=== PATIENT | male | born 1950 | race Caucasian/White ===

== ENCOUNTER 2017-04-20 12:26 | Inpatient (IN) | payer OTHER, MEDICARE ==
[~2017-04-20] VITALS: Ht 172.7 cm; Wt 97.5 kg
[~2017-04-20 12:26] MED LIST: CHOL1CAP6 PO; LISI10TA PO; MEVA40TA PO; TERA2CAP3 PO; TEST200I13 IM; VIAG100T PO
--- NOTE | 2017-04-20 13:13 | PD ---
HPI Chief Complaint: chest pain Time Seen by Provider: 13:13 Travel History International Travel<30 days: No Contact w/Intl Traveler<30days: No History of Present Illness HPI 66 YO M with PMH of HTN, HLD presents to the ED via EMS for evaluation of intermittent chest pain x "a few months." Described as a pressure over the left precordium. Exacerbated by exertion or stress. Episodes come on suddenly , lasts 2-3 seconds, resolves spontaneously. Patient states that he rests, drinks water, goes in the air conditioning when these episodes occur. Denies associated palpitations, nausea, vomiting, diaphoresis. Last episode this morning while having an argument with his at approximately 9:30, lasting 3- 4 seconds. Asymptomatic on presentation. He states that he's never had a cardiac workup. He went to the [facility] and had an EKG which showed inverted T waves change from his last EKG on March 08, 2017. He was administered aspirin and sent to the ED. Patient has a 20+ pack year history of smoking, quit in 1984. Drinks "2 glasses of wine" daily and "a couple mixed drinks weekly." Family history significant for father with "massive [place]' and cardiac " at age 65. PFSH Past Medical History Heart Rhythm Problems: No Cardiac Catheterization: No Cardiovascular Problems: No High Cholesterol: Yes Congestive Heart Failure: No Diabetes: No Hypertension: Yes Thyroid Disease: Yes Past Surgical History Coronary Artery Bypass Graft: No Social History Alcohol Use: Yes (2 GLASSES WINE/DAY, 3-4 COCKTAILS PER WEEK, 1 BEER TODAY) Tobacco Use: No Substance Use: No Allergies-Medications (Allergen,Severity, Reaction): Coded Allergies: No Known Allergies (Unverified , 04/20/17) Reported Meds & Prescriptions Reported Meds & Active Scripts Active Reported Tamsulosin (Tamsulosin HCl) 0.4 Mg Cap 0.4 Mg PO HS Lipitor (Atorvastatin Calcium) 80 Mg Tab 80 Mg PO HS Testosterone Cypionate Inj (Testosterone Cypionate) 200 Mg/Ml Inj 200 Mg IM Q14D Synthroid (Levothyroxine Sodium) 50 Mcg Tab 50 Mcg PO DAILY Lisinopril-Hctz 10-12.5 Mg Tab 1 Tab PO DAILY Review of Systems Except as stated in HPI: all other systems reviewed are Neg Physical Exam Narrative GENERAL: Well-nourished, well-developed white male in no acute distress. SKIN: Focused skin assessment warm/dry. HEAD: Normocephalic. EYES: No scleral icterus. No injection or drainage. NECK: Supple, trachea midline. No JVD or lymphadenopathy. CARDIOVASCULAR: Regular rate and rhythm without murmurs, gallops, or rubs. RESPIRATORY: Breath sounds clear and equal bilaterally. No accessory muscle use. GASTROINTESTINAL: Abdomen soft, non-tender, nondistended. Active bowel sounds. MUSCULOSKELETAL: No cyanosis, or edema. BACK: Nontender without obvious deformity. No CVA tenderness. Data Data Last Documented VS Vital Signs Date Time Temp Pulse Resp B/P Pulse Ox O2 Delivery O2 Flow Rate FiO2 04/20/17 13:31 Room Air 04/20/17 13:31 155/78 156/81 04/20/17 13:31 99 04/20/17 13:30 98.2 60 17 Orders Electrocardiogram (04/20/17 13:24) Ckmb (Isoenzyme) Profile (04/20/17 13:24) Complete Blood Count With Diff (04/20/17 13:24) Comprehensive Metabolic Panel (04/20/17 13:24) Magnesium (Mg) (04/20/17 13:24) Prothrombin Time / Inr (Pt) (04/20/17 13:24) Act Partial Throm Time (Ptt) (04/20/17 13:24) Troponin I (04/20/17 13:24) Chest, Single Ap (04/20/17 13:24) Ecg Monitoring (04/20/17 13:24) Bilateral Bp Monitoring (04/20/17 13:24) Iv Access Insert/Monitor (04/20/17 13:24) Oximetry (04/20/17 13:24) Sodium Chloride 0.9% Flush (Ns Flush) (04/20/17 13:30) CKMB (04/20/17 13:45) CKMB% (04/20/17 13:45) Admit Order (Ed Use Only) (04/20/17 14:47) Labs Laboratory Tests Test 04/20/17 13:45 White Blood Count 8.8 TH/MM3 Red Blood Count 4.72 MIL/MM3 Hemoglobin 14.5 GM/DL Hematocrit 42.4 % Mean Corpuscular Volume 89.9 FL Mean Corpuscular Hemoglobin 30.7 PG Mean Corpuscular Hemoglobin 34.2 % Concent Red Cell Distribution Width 15.3 % Platelet Count 207 TH/MM3 Mean Platelet Volume 7.4 FL Neutrophils (%) (Auto) 75.4 % Lymphocytes (%) (Auto) 15.1 % Monocytes (%) (Auto) 7.4 % Eosinophils (%) (Auto) 0.7 % Basophils (%) (Auto) 1.4 % Neutrophils # (Auto) 6.6 TH/MM3 Lymphocytes # (Auto) 1.3 TH/MM3 Monocytes # (Auto) 0.7 TH/MM3 Eosinophils # (Auto) 0.1 TH/MM3 Basophils # (Auto) 0.1 TH/MM3 CBC Comment DIFF FINAL Differential Comment Prothrombin Time 11.1 SEC Prothromb Time International 1.0 RATIO Ratio Activated Partial 26.8 SEC Thromboplast Time Sodium Level 137 MEQ/L Potassium Level 3.7 MEQ/L Chloride Level 101 MEQ/L Carbon Dioxide Level 26.3 MEQ/L Anion Gap 10 MEQ/L Blood Urea Nitrogen 17 MG/DL Creatinine 0.83 MG/DL Estimat Glomerular Filtration 92 ML/MIN Rate Random Glucose 102 MG/DL Calcium Level 9.1 MG/DL Magnesium Level 2.4 MG/DL Total Bilirubin 0.6 MG/DL Aspartate Amino Transf 23 U/L (AST/SGOT) Alanine Aminotransferase 29 U/L (ALT/SGPT) Alkaline Phosphatase 45 U/L Total Creatine Kinase 258 U/L Creatine Kinase MB 4.4 NG/ML Troponin I 0.03 NG/ML Total Protein 7.2 GM/DL Albumin 4.1 GM/DL MDM Medical Decision Making Medical Screen Exam Complete: Yes Emergency Medical Condition: Yes Differential Diagnosis Chest pain versus angina versus ACS versus other Narrative Course 66 YO M with PMH of HTN, HLD presents to the ED via EMS for evaluation of intermittent chest pain x "a few months." Described as a pressure over the left precordium. Exacerbated by exertion or stress. Episodes come on suddenly , lasts 2-3 seconds, resolves spontaneously. Denies associated palpitations, nausea, vomiting, diaphoresis. Last episode this morning while having an argument with his at approximately 9:30, lasting 3-4 seconds. Asymptomatic on presentation. He states that he's never had a cardiac workup. He went to the [facility] and had an EKG which showed inverted T waves, change from his last EKG on March 08, 2017. He was administered aspirin and sent to the ED. Patient has a 20+ pack year history of smoking, quit in 1984. Drinks "2 glasses of wine" daily and "a couple mixed drinks weekly." Family history significant for father with "massive [place]' and cardiac " at age 65. Vitals reviewed, BP 161/89 on presentation. Physical exam reveals a pleasant, well- appearing white male in no acute distress. Chest clear to auscultation bilaterally. No appreciable M/R/G. No lower extremity edema. EKG rate 64, sinus rhythm. NE interval 204, QRS 1:15, QTC 391. No ST changes. Reviewed by Dr. Soto. CXR: No acute cardio pulmonary disease per radiology read. No concerning abnormalities of the CBC, CMP or coags. CK-MB 4.4. Troponin 0.03. I discussed observation admission with the patient for serial cardiac enzymes and EKGs. He is agreeable. Patient admitted to Dr. Carroll and the [facility]. Please see their notes for disposition. Diagnosis Primary Impression: Chest pain Admitting Information Admitting Physician Requests: Observation Dhara Stauffer Apr 20, 2017 13:13
[2017-04-20 13:30] VITALS: BP 155/78; PULSE 60; RESP 17; TEMP 98.2; O2SAT 98
[2017-04-20] MEDS ORDERED: SODIUM CHLORIDE 0.9% FLUSH 10 ML FLUSH IVF PRN (13:30)
[2017-04-20 13:31] VITALS: BP_SYST 155; BP_SYST 156; BP_DIAS 78; BP_DIAS 81; O2SAT 99
[2017-04-20] MEDS ORDERED: LEVO.05 PO (13:38)
[2017-04-20] MEDS ORDERED: LISI10TA PO (13:38)
[2017-04-20] MEDS ORDERED: LIPI80TA PO (13:38)
[2017-04-20] MEDS ORDERED: TEST200I12 IM (13:38)
[2017-04-20] MEDS ORDERED: TAMS0.4C4 PO (13:38)
--- NOTE | 2017-04-20 14:18 | RADRPT ---
EXAM DATE/TIME: 04/20/2017 13:30 [place] COMPARISON: No previous studies available for comparison. INDICATIONS : Chest pain and shortness of breath with any activity. MEDICAL HISTORY : Hypertension. SURGICAL HISTORY : None. ENCOUNTER: Initial ACUITY: 1 day PAIN SCORE: 4/10 LOCATION: Left middle chest FINDINGS: A single view of the chest demonstrates the lungs to be symmetrically aerated without evidence of mas s, infiltrate or effusion. The cardiomediastinal contours are unremarkable. Osseous structures are intact. CONCLUSION: 1. No acute cardiopulmonary disease. Eliud Jauregui MD on April 20, 2017 at 14:16 Board Certified Radiologist. This report was verified electronically.
[2017-04-20 14:19] LABS: AUTOMATED NEUTROPHIL # 6.6 TH/MM3 (1.8-7.7); BASOPHIL # 0.1 TH/MM3 (0-0.2); BASOPHIL % 1.4 % (0.0-2.0); EOSINOPHIL # 0.1 TH/MM3 (0-0.4); EOSINOPHIL % 0.7 % (0.0-4.0); HEMATOCRIT 42.4 % (39.0-51.0); HEMO FLAGS DIFF FINAL; LYMPH % 15.1 % (9.0-44.0); LYMPHOCYTE # 1.3 TH/MM3 (1.0-4.8); MEAN CELL VOLUME 89.9 FL (80.0-100.0); MEAN CORPUSCULAR HEMOGLOBIN 30.7 PG (27.0-34.0); MEAN CORPUSCULAR HGB CONC 34.2 % (32.0-36.0); MONO % 7.4 % (0.0-8.0); NEUT % 75.4 % (16.0-70.0); PLATELET COUNT 207 TH/MM3 (150-450); RED BLOOD COUNT 4.72 MIL/MM3 (4.50-5.90); RED CELL DISTRIBUTION WIDTH 15.3 % (11.6-17.2); WHITE BLOOD COUNT 8.8 TH/MM3 (4.0-11.0)
[2017-04-20 14:27] LABS: APTT (PATIENT) 26.8 SEC (24.3-30.1); PROTHROMBIN TIME - PATIENT 11.1 SEC (9.8-11.6)
[2017-04-20 14:32] LABS: ANION GAP 10 MEQ/L (5-15); AST (GOT) 23 U/L (15-37); BICARBONATE 26.3 MEQ/L (21.0-32.0); BLOOD UREA NITROGEN 17 MG/DL (7-18); CHLORIDE 101 MEQ/L (98-107); GLOMERULAR FILTRATION RATE 92 ML/MIN (>89); MAGNESIUM 2.4 MG/DL (1.5-2.5); POTASSIUM 3.7 MEQ/L (3.5-5.1); SODIUM (NA) 137 MEQ/L (136-145)
[2017-04-20 14:33] LABS: ALT (GPT) 29 U/L (12-78)
[2017-04-20 14:36] LABS: ALKALINE PHOSPHATASE 45 U/L (45-117); CREATINE KINASE 258 U/L (39-308); TOTAL BILIRUBIN ADULT 0.6 MG/DL (0.2-1.0)
[2017-04-20 14:48] LABS: CKMB 4.4 NG/ML (0.5-3.6)
[2017-04-20] MEDS ORDERED: ACETAMINOPHEN 500 MG CPLT PO PRN (15:15)
[2017-04-20] MEDS ORDERED: NITROGLYCERIN 0.4 MG SL 25 TABS/BTL SL PRN (15:15)
[2017-04-20] MEDS ORDERED: ONDANSETRON HCL 4 MG/2 ML VIAL IV PRN (15:15)
[2017-04-20 16:15] VITALS: BP 161/89; PULSE 60; RESP 16; O2SAT 97
--- NOTE | 2017-04-20 16:35 | HHI.HP ---
HPI Primary Care Physician [facility] Chief Complaint Chest pain History of Present Illness 66-year-old male with history of hypertension, hyperlipidemia, and hypothyroidism presents to emergency room for further evaluation of chest pain. Onset 3 months. Location substernal. Characterized as pressure with exertion. No radiation of pain. Duration seconds to a few minutes. Relieved with rest. Severity "mild." No associated symptoms. Precipitating factors he relates to increase physical activity doing yard work and daily humidity. Had an argument with his this and developed substernal chest discomfort lasting 30 seconds. Encouraged to come the emergency room by for further evaluation. Review of Systems General: No fatigue,weakness, fever, chills, recent illness, or change in appetite. Has been in his general state of health. HEENT: No COFFMAN, no dysphasia CV: As stated above. Denies any current chest discomfort. No palpitations or dizziness RESP: No SOB, cough, wheeze, or history of asthma GI: No nausea, vomiting, bowel changes, diarrhea, constipation, pain, distention , melena, or blood in the stool. No unintentional weight gain or weight loss. : No dysuria, history of kidney stones EXT: No lower leg edema, no paraesthesias MS: No discomfort or change in ROM NEURO: No difficulty with balance, LOC, motor/sensory deficits PSYCH: No anxiety, depression, or suicidal ideation SKIN: No rashes, no concerning lesions Past Family Social History Allergies: Coded Allergies: No Known Allergies (Unverified , 04/20/17) Past Medical History Hypertension, hyperlipidemia, hypothyroidism why she Past Surgical History Right hip replacement Reported Medications Active Reported Tamsulosin (Tamsulosin HCl) 0.4 Mg Cap 0.4 Mg PO HS Lipitor (Atorvastatin Calcium) 80 Mg Tab 80 Mg PO HS Testosterone Cypionate Inj (Testosterone Cypionate) 200 Mg/Ml Inj 200 Mg IM Q14D Synthroid (Levothyroxine Sodium) 50 Mcg Tab 50 Mcg PO DAILY Lisinopril-Hctz 10-12.5 Mg Tab 1 Tab PO DAILY Active Ordered Medications Current Medications Medications (Trade) Dose Ordered Sig/Aleta Route Start Time Stop Time Status Last Admin (NS Flush) 2 ml UNSCH PRN IVF 04/20/17 13:30 (NS Flush) 2 ml BID IV FLUSH 04/20/17 21:00 (Tylenol) 500 mg Q4H PRN PO 04/20/17 15:15 (Zofran Inj) 4 mg Q6H PRN IV 04/20/17 15:15 (Nitrostat Sl) 0.4 mg Q5M PRN SL 04/20/17 15:15 (Aspirin) 325 mg DAILY PO 04/21/17 09:00 Family History Father massive heart attack age 66. Social History Known hypertension and hyperlipidemia. No known personal coronary artery disease or diabetes. Quit smoking 1984. Endorses alcohol 24 drinks nightly. Denies any illegal drug use. , retired. Past cardiac testing No recent cardiac testing. Never required cardiac catheterization. Physical Exam Vital Signs Vital Signs Date Time Temp Pulse Resp B/P Pulse Ox O2 Delivery O2 Flow Rate FiO2 04/20/17 16:15 60 16 161/89 97 Room Air 04/20/17 13:31 Room Air 04/20/17 13:31 155/78 156/81 04/20/17 13:31 99 Room Air 04/20/17 13:30 98.2 60 17 155/78 98 Physical Exam GENERAL: Alert WN, WD, NAD, pleasant, male HEAD: NC, AT EYES: Sclera clear, conjunctiva without injection, pupils equal and round ENT: Mucous membranes pink and moist NECK: Supple, no masses, trachea midline CV: RRR, without murmur, rub, gallop, no JVD, S1-S2 no S3-S4. No carotid bruits. RESP: Clear lungs throughout bilateral, no crackles, wheeze, rhonchi, symmetrical chest rise, nonlabored, able to speak in full sentences ABD: Soft, NT, ND, no masses, positive bowel tones EXT: Pulses +24, no dependent edema MS: Normal tone 4 extremities, nontender, no obvious deformities, full range of motion NEURO: CN II through CN XII grossly intact, motor strength 5/5, gait WNL PSYCH: A+O 3, pleasant affect, appropriate speech, appropriate mood and affect , insight and judgment SKIN: Normal turgor, normal texture, no lesions, no rashes, brisk cap refill, even hair distribution Laboratory Laboratory Tests Test 04/20/17 13:45 White Blood Count 8.8 Red Blood Count 4.72 Hemoglobin 14.5 Hematocrit 42.4 Mean Corpuscular Volume 89.9 Mean Corpuscular Hemoglobin 30.7 Mean Corpuscular Hemoglobin 34.2 Concent Red Cell Distribution Width 15.3 Platelet Count 207 Mean Platelet Volume 7.4 Neutrophils (%) (Auto) 75.4 Lymphocytes (%) (Auto) 15.1 Monocytes (%) (Auto) 7.4 Eosinophils (%) (Auto) 0.7 Basophils (%) (Auto) 1.4 Neutrophils # (Auto) 6.6 Lymphocytes # (Auto) 1.3 Monocytes # (Auto) 0.7 Eosinophils # (Auto) 0.1 Basophils # (Auto) 0.1 CBC Comment DIFF FINAL Differential Comment Prothrombin Time 11.1 Prothromb Time International 1.0 Ratio Activated Partial 26.8 Thromboplast Time Sodium Level 137 Potassium Level 3.7 Chloride Level 101 Carbon Dioxide Level 26.3 Anion Gap 10 Blood Urea Nitrogen 17 Creatinine 0.83 Estimat Glomerular Filtration 92 Rate Random Glucose 102 Calcium Level 9.1 Magnesium Level 2.4 Total Bilirubin 0.6 Aspartate Amino Transf 23 (AST/SGOT) Alanine Aminotransferase 29 (ALT/SGPT) Alkaline Phosphatase 45 Total Creatine Kinase 258 Creatine Kinase MB 4.4 Troponin I 0.03 Total Protein 7.2 Albumin 4.1 Result Diagram: 04/20/17 1345 04/20/17 1345 Imaging Last Impressions Chest X-Ray 04/20/17 1324 Signed Impressions: Service Date/Time: Thursday, April 20, 2017 13:30 - CONCLUSION: 1. No acute cardiopulmonary disease. Eliud Jauregui MD Course EKG Normal sinus rhythm, normal axis, no ST or T-segment changes Assessment and Plan Assessment and Plan #1 Chest painadmitted to chest pain center. Seen and evaluated by Dr. Yordan Carroll. Ruled out with 1 set of EKG and cardiac enzymes. Due to prolonged intermittent chest discomfort will proceed with exercise stress test this evening. During stress test developed ST depression inferiorly, V3V6, and ST elevation V1 and V2. Stress test stopped and during recovery ST segments returned to baseline with T-wave inversions anterior laterally. Dr. Carroll made aware. Consult medical team and cardiology. Discussed with patient and in length with times for question and answers provided. Both agreeable to plan of care. Troponin and EKG Q3H x2. Nitro paste 0.5" Q6H. Start beta terry therapy with parameters as patient is bradycardiac. #2 Hypertensioncontinue lisinopril/HCTZ, continue to monitor #3 Hyperlipidemia-continue atorvastatin #4 Hypothyroidism-continue levothyroxine Joann Dunn Apr 20, 2017 16:35
[2017-04-20] MEDS ORDERED: PILL SPLITTER OTHER PRN (19:00)
[2017-04-20 19:38] LABS: CREATINE KINASE 162 U/L (39-308)
[2017-04-20 19:50] LABS: CKMB 2.9 NG/ML (0.5-3.6)
[2017-04-20 20:32] VITALS: BP 175/84; PULSE 59; RESP 18; O2SAT 96
[2017-04-20] MEDS: METOPROLOL TARTRATE 25 MG TAB PO SCH (20:34)
[2017-04-20] MEDS: ATORVASTATIN 80 MG TAB PO SCH (20:34)
[2017-04-20] MEDS: TAMSULOSIN HCL 0.4 MG CAP PO SCH (20:34)
[2017-04-20] MEDS: SODIUM CHLORIDE 0.9% FLUSH 10 ML FLUSH IV FLUSH SCH (20:37)
[2017-04-20 21:18] VITALS: BP 149/69; PULSE 67; RESP 18; TEMP 98.4; O2SAT 95
[2017-04-20 22:58] LABS: CREATINE KINASE 204 U/L (39-308)
[2017-04-20 23:10] LABS: CKMB 3.3 NG/ML (0.5-3.6)
[2017-04-21] VITALS (17 sets, daily range): BP systolic 121–150; BP diastolic 59–89; PULSE 50–77; RESP 18; TEMP 97.4–98.6; O2SAT 95–97
[2017-04-21] MEDS: LEVOTHYROXINE SODIUM 50 MCG TAB PO SCH (06:08)
[2017-04-21] MEDS: METOPROLOL TARTRATE 25 MG TAB PO SCH ×2 (07:47→21:15)
[2017-04-21] MEDS: ASPIRIN 325 MG TAB PO SCH (07:48)
[2017-04-21] MEDS: SODIUM CHLORIDE 0.9% FLUSH 10 ML FLUSH IV FLUSH SCH ×2 (07:49→21:16)
[2017-04-21] MEDS ORDERED: HYDROCHLOROTHIAZIDE 12.5 MG CAP PO SCH (09:00)
[2017-04-21] MEDS ORDERED: LISINOPRIL 10 MG TAB PO SCH (09:00)
--- NOTE | 2017-04-21 09:46 | HHI.PR ---
Subjective Remarks Follow-up for chest pain. Patient's at bedside. The patient states that recently he has been getting chest tightness with associated shortness of breath whenever he exerts himself. The pain is relieved by rest. He denies any pain overnight while he's been resting here in the hospital. He did have a positive exercise treadmill stress test yesterday and was admitted to hospitalist service for cardiology consultation which is pending. The patient does have a history of high blood pressure and high cholesterol, denies diabetes or tobacco use. He denies any prior history of heart disease. He follows with the [place]. All questions answered to the best of my ability. Objective Vitals Vital Signs Date Time Temp Pulse Resp B/P Pulse Ox O2 Delivery O2 Flow Rate FiO2 04/21/17 07:36 97.4 60 18 146/75 97 04/21/17 05:29 98.4 62 18 134/63 97 04/21/17 04:00 50 04/21/17 00:44 98.4 77 18 150/74 97 04/21/17 00:00 61 04/20/17 21:18 98.4 67 18 149/69 95 04/20/17 20:32 59 18 175/84 96 04/20/17 16:15 60 16 161/89 97 Room Air 04/20/17 13:31 Room Air 04/20/17 13:31 155/78 156/81 04/20/17 13:31 99 Room Air 04/20/17 13:30 98.2 60 17 155/78 98 Result Diagram: 04/20/17 1345 04/20/17 1345 Imaging Last Impressions Chest X-Ray 04/20/17 1324 Signed Impressions: Service Date/Time: Thursday, April 20, 2017 13:30 - CONCLUSION: 1. No acute cardiopulmonary disease. Eliud Jauregui MD Objective Remarks GENERAL: Well-developed well-nourished. In no acute distress. SKIN: Warm and dry. No lesions noted. HEENT: Normocephalic. Pupils equal and round. Mucous membranes pink and moist. CARDIOVASCULAR: Regular rate and rhythm. No murmur appreciated. RESPIRATORY: No accessory muscle use. Clear to auscultation. Breath sounds equal bilaterally. GASTROINTESTINAL: Abdomen soft, non-tender, nondistended. Bowel sounds x4. MUSCULOSKELETAL: No obvious deformities. No clubbing or cyanosis. No edema. NEUROLOGICAL: Awake and alert. No focal neurological deficits. Moves upper and lower extremities spontaneously. Normal speech. PSYCHIATRIC: Appropriate mood and affect; insight and judgment normal. A/P Assessment and Plan 66-year-old male with a past medical history of HTN, HLD, BPH, hypothyroidism who presented with episodes of chest pain and shortness of breath with exertion Chest pain: With episodes that sound like typical angina. The patient had positive ischemic changes during treadmill stress testing with the chest pain center. Troponins and EKGs unremarkable 3. Cardiology consulted, appreciate input. Started on aspirin, Nitropaste, and metoprolol. Continue lisinopril and atorvastatin. Monitor on telemetry. Hypertension: Well controlled. Continue home lisinopril, tamsulosin, and HCTZ. Started on metoprolol as well. Hypothyroidism: Chronic. Continue home levothyroxine. DVT prophylaxis: SCDs Discharge Planning Disposition pending cardiology recommendations. Heber [place] Apr 21, 2017 09:46
[2017-04-21] MEDS ORDERED: HEPARIN-NS/PF INJ 500 ML ONE (13:22)
--- NOTE | 2017-04-21 13:26 | MB ---
cc: ELI VAZQUEZ DATE OF CONSULTATION 04/21/2017 DATE OF 1950 REASON FOR CONSULTATION Chest pain, positive stress test. HISTORY OF PRESENT ILLNESS 66-year-old male with cardiac risk factors that include hypertension, hyperlipidemia, obesity, former smoker who presented to the emergency department for evaluation of chest pain. The patient reports that he has been having this chest pain on exertion for the last three months. The chest pain is relieved by rest and characterized as a pressure in the middle of his chest with no radiation that lasts a few minutes. He denies shortness of breath, palpitations or syncope. The patient was admitted to the chest pain clinic. EKG done shows normal sinus rhythm with nonspecific ST changes. Cardiac markers are unremarkable. Exercise stress test was done was stopped because of ST elevations in the anterior leads and complaints of chest discomfort. Thus, interventional cardiology has been consulted for a left heart cath. REVIEW OF SYSTEMS Negative except for what is mentioned in HPI. PAST MEDICAL HISTORY 1. Hypertension 2. Hyperlipidemia 3. Hypothyroidism 4. Obesity PAST SURGICAL HISTORY Right hip replacement CARDIAC HOME MEDICATIONS 1. Lipitor 80 mg p.o. daily 2. Lisinopril with Hydrochlorothiazide 12.5 mg p.o. daily FAMILY HISTORY Father of a massive heart attack at age 66. SOCIAL HISTORY Quit smoking in 1984. He drinks alcohol socially. Denies illicit drug use. He is and retired. PHYSICAL EXAMINATION VITAL SIGNS: Temperature 98, respiratory rate 18, heart rate 52, blood pressure 128/66, O2 sat 97% on room air. GENERAL: He is awake, alert and oriented in no acute distress. NECK: No JVD. No carotid bruits. HEART: Regular rate and rhythm without murmurs, rubs or gallops. LUNGS: Clear to auscultation bilaterally. No wheeze, rhonchi or rales. ABDOMEN: Obese. Positive bowel sounds, soft, nontender, and nondistended. EXTREMITIES: No cyanosis or edema. Pulses throughout. DATA CBC hemoglobin 14, hematocrit 42, platelet count 207, INR 1. Chemistries sodium 137, potassium 3.7, BUN 17, creatinine 0.83, troponin 0.03, 0.02, and 0.02. INR 1. EKG sinus rhythm with no acute ST changes. ASSESSMENT/PLAN 66-year-old male with cardiac risk factors that include hypertension, hyperlipidemia, obesity who presented to the hospital with chest pain. During Exercise stress test he developed acute ST-segment elevation in the anterior leads. LHC is strongly recommended to further assess coronary anatomy. The risks and benefits of left heart cath/PCI including, but not limited to infection, bleeding, neurovascular trauma, stroke, emergent bypass surgery and have been explained to the patient. The patient understands the risks and is willing to proceed. RECOMMENDATIONS Keep n.p.o. for left heart cath today. Continue aggressive medical management for CAD. Thank you for the opportunity to participate in the care of this patient. Further management to be determined. MD LEOLA Lemus/MAXIM /12:59 PM /1:07 PM [id number]
--- NOTE | 2017-04-21 14:07 | CATHPROC ---
Vivo HIS Report Study Information Study Number Admission Scheduled Start Study Start [id number] Apr 20 2017 2:48PM 04/21/2017 Apr 21 2017 1:19PM [place] [facility] Cardiac Catheterization Admit Source Facility Department Emergency department [facility] - Junior Marketing Associate Physician and Clinical Staff Initial Vidal Fuentes Payroll And Benefits AnalystGiulia Saeed,KAILASH Payroll And Benefits Analystrhea Donahue RN, Keith Dupree cathlab, cathlab Recorder Neil Prasad RCIS(BS) Karine Del Rio RT(R) (BS) Procedures Performed Procedure Location (Site) Vessel Name Coronary Angiograms LCA Left Coronary Coronary Angiograms RCA Right Coronary L Heart Cath LV Gram-hand inj. LV LV Ventricle Equipment Time Senior Test Engineer Description Size Mfg Part Number Used/Scraped TRANSDUCER, DRAKE [id number] 13:45 ELLIOTT VOGT * Used W/STOCKCOCK *[id number] 13:54 Equ[employer]ois MEDICAL VASCADE, FR5 CLOSURE SYSTEM FR 5 Used *[id number]- INTRODUCER SET, 13:45 [employer] FR 5 SC-NT-U-SST Used MICROPUNCTURE, STIFFENED *[id number] *[id number] *[id number] 13:45 [employer] INDUSTRIES PACK, CCL CUSTOM * Used *[id number] 13:45 Satoris WIRE, 3MMJ .035 180CM 180CM Used *[id number] 13:45 NAMIC MANIFOLD, 4 PORT * Used *[id number] 13:45 NYCOMED OMNIPAQUE, 350 MG, 150ML 150ML [id number] Used [id number] 13:45 [email or web address] MEDICAL BLANKET,WARM AIR CCL * Used *[id number] 13:45 TERUMO MEDICAL SHEATH, FR5 TERUMO (10CM) FR 5 Used *[id number] History: Current Medications Medication Dosage/Unit Route Frequency Last Date/Time Taken Statins (any) History: Allergies Allergy Reaction No Known Allergies History: Risk Factors Family History of Hypertension Dyslipidemia Previous [place] Previous Heart Failure Premature CAD Yes Yes Yes No No Prior Valve Prior PCI Prior CABG Surgery No No No Cerebrovascular Peripheral Artery Chronic Lung On Dialysis Diabetes Disease Disease Disease No No No No No History: Symptoms/Diagnosis Selection Items Chest pain History: Stress Tests Stress or Imaging Studies Performed Yes Standard Exercise Stress Test No Stress Echo No Stress Test SPECT Stress Test SPECT Result Stress Test SPECT Ischemia Risk/Extent Yes Positive High Stress Test CMR No Cardiac CTA Coronary Calcium Score No No History: Other Disease Selection Items HTN History: Other Current Smoker Method Quit Packs a Day Years Used Pack Years No Cigarettes 32 Years Ago 1 15 15 Labs Hgb (g/dl) Hct (%) WBC (l/cumm) Platelets (thousands) 11.60-17.00 35.00-51.00 4.00-11.00 150.00-450.00 14.5 42.4 8.8 207 Glucose (mg/dl) BUN (mg/dl) Creatinine (mg/dl) BUN:Creatinine (1:x) 74.00-106.00 7.00-18.00 0.50-1.30 10.00-20.00 102 17 0.8 21.3 Na (meq/l) K (meq/l) 136.00-145.00 3.50-5.10 137 3.7 INR (PTT:PT) 0.90-1.10 1 Troponin I (ng/ml) CPK-MB (ng/ML) 0.02-0.05 0.50-3.60 0.03 4.4 Medication Medication Total Dose (Bolus/Oral) Medication Total Dosage/Unit 1% XYLOCAINE 20 mL FENTANYL 50 mcg VERSED 2 mg Medications (Bolus/Oral) Medication Time Given Dosage/Unit Administered By Reason VERSED 04/21/2017 1:41:02 PM 2 mg Giulia Shepherd 2 mg VERSED given in lab by Giulia Shepherd, RN in Left Antecubital via Peripheral IV. Ordered by Vidal Farris. 1% XYLOCAINE 04/21/2017 1:42:27 PM 20 mL Vidal Pate 20 mL 1% XYLOCAINE given in lab by Vidal Pate in Right Groin via Subcutaneous. FENTANYL 04/21/2017 1:42:42 PM 50 mcg Giulia Shepherd 50 mcg FENTANYL given in lab by Giulia Shepherd, RN in Left Antecubital via Peripheral IV. Ordered by Vidal Pate. Medication (Drip) Medication Time Given Dosage/Unit Concentration/Unit Diluent (ml) Solution IV Solutions 04/21/2017 1:19:49 PM 0 mL (IV) 500 NaCl .9 IV Solutions given in lab by cathlab, cathlab in Left Antecubital via Peripheral IV. Pump/Drip Flow = 20 ml/hr using NaCl .9. Ordered by Vidal Pate. Initial Case Assessment Cardiovascular HR Rhythm NIBP Chest Pain 60 nsr 172/91 0 Edema Present Skin color Skin None Normal Warm Dry Circulatory - Right Pulses Dorsalis Pedis Femoral 1 1 Scale (0,1,2,3,4,d) Circulatory - Left Pulses Dorsalis Pedis Femoral 1 1 Scale (0,1,2,3,4,d) Neurological State Oriented to time-place- Alert Moves all extremities person Respiration - General Respiration Rate SpO2 (%) (B/min) 15 96 Final Case Assessment Cardiovascular HR Rhythm NIBP Chest Pain 58 nsr 147/79 0 Edema Present Skin color Skin None Normal Warm Dry Circulatory - Right Pulses Dorsalis Pedis Femoral 1 1 Scale (0,1,2,3,4,d) Circulatory - Left Pulses Dorsalis Pedis Femoral 1 1 Scale (0,1,2,3,4,d) Neurological State Oriented to time-place- Alert Moves all extremities person Respiration - General Respiration Rate SpO2 (%) (B/min) 15 96 Chronological Log Time Study Chronological Log 13:17:32 Patient arrived via Bed. 13:19:36 Patient Name, D.O.B, / Armband Verified By R.N. 13:19:37 Consent signed by the physician and the patient and verified by the Junior Marketing Associate staff. 13:19:41 Patient has been NPO for More than 6Hrs. 13:19:42 Skin Breakdown- 13:19:46 Zandra Prominences Protected 13:19:47 A # 20 IV was noted in the Antecubital (left). Grade = 0 IV Solutions given in lab by cathlab, cathlab in Left Antecubital via Peripheral IV. Pump/Drip Flow = 20 ml/hr using NaCl 13:19:49 .9. Ordered by Vidal Pate. 13:19:50 History and physical on the chart or being dictated. Vitals capture started with the following parameters, Patient=Adult, Interval=5 min, Initial Pr hcsufb=873 mmHg, 13:20:29 Deflation Rate=5 mmHg, Cuff placed on Right Arm 13:22:00 HR=66 bpm, BZGU=288/88 mmhg, Resp=18 B/min, Pain=0, Dee=10, Winchester=2 13:22:43 Reference ECG taken 13:26:16 HR=56 bpm, FWFC=046/88 mmhg, Resp=13 B/min, Pain=0, Dee=10, [place]inchester=2 Assessment: Initial Case, HR=60 BPM, Rhythm=nsr, CEVP=357/91 mmhg, Chest Pain=0, Edema=None, Co garrett=Normal, Skin = Warm, Dry Right Pulses: Teofilo Ped=1, Femoral=1 13:30:45 Left Pulses: Teofilo Ped=1, Femoral=1 Neurological: State=Alert, Ox3, FRANCIS Respiration: Resp=15 B/min, SpO2=96 % 13:31:21 HR=55 bpm, LKUT=770/91 mmhg, SpO2=97.0 %, Resp=16 B/min, Pain=0, Dee=10, [place]=2 13:34:17 Bilateral groins prepped with 2% chlorhexidine, and with a 3 min. waiting time. 13:34:40 MD paged 13:36:55 HR=53 bpm, ZYLO=746/82 mmhg, SpO2=95.0 %, Resp=16 B/min, Pain=0, Dee=10, Winchester=2 13:37:04 Pressure channel 1 zeroed. 13:39:48 MD arrived. 13:39:51 Contrast Scanned 13:39:52 Immediate Presedation assesment performed by physician. 13:41:02 2 mg VERSED given in lab by Giulia Shepherd, KAILASH in Left Antecubital via Peripheral IV. Orde red by Vidal Pate. 13:41:17 HR=53 bpm, HYFE=964/82 mmhg, SpO2=95.0 %, Resp=16 B/min, Pain=0, Dee=10, Winchester=2 Time Out. Correct patient, correct procedure,correct physician, ,power injector not loaded with contrast with surgical 13:42:14 team present. Time Out Concurred by , individual staff in procedure 13:42:20 Case Start 13:42:21 Verbal Stimulation=2 Physical Stimulation=2 Airway=2 Respiration=2 TOTAL=8. (0=absent, 1=adelaide tucker, 2=present) 13:42:27 20 mL 1% XYLOCAINE given in lab by Vidal Pate in Right Groin via Subcutaneous. 50 mcg FENTANYL given in lab by Giulia Shepherd RN in Left Antecubital via Peripheral IV. Orde red by Rio, 13:42:42 Vidal. 13:44:48 Access site was Right Femoral Artery. A INTRODUCER SET, MICROPUNCTURE, STIFFENED FR 5 was advanced into the Fem Art (right) using the 13:44:53 Percutaneous technique. A SHEATH, FR5 TERUMO (10CM) FR 5 was exchanged in the Fem Art (right). This was necessary in or faye to 13:45:35 accomodate a larger catheter. 13:46:03 An injection in the Fem Art (right) was made through the SHEATH, FR5 TERUMO (10CM) FR 5. 13:46:16 HR=51 bpm, KWJK=157/76 mmhg, SpO2=96.0 %, Resp=15 B/min, Pain=0, Dee=10, Winchester=2 A JR 4.0 INFINITI CATHETER FR 5 was advanced over a wire. OMNIPAQUE, 350 MG, 150ML 150ML was us ed for 13:47:24 injections. Recorded Pressure: LV, HR=51, Condition=Condition 1 13:48:13 (Left Ventricle) LV 135/5/15 13:48:20 The LV was manually injected with 10 cc's and visualized. OMNIPAQUE, 350 MG, 150ML 150ML us ed. Recorded Pressure: LV, Ao, HR=52, Condition=Condition 1 13:48:56 (Left Ventricle) LV 140/9/15, (Aorta) Ao 131/59/89 13:49:16 The RCA was injected and visualized at various angles. OMNIPAQUE, 350 MG, 150ML 150ML used . 13:49:42 Catheter was removed A JL 4.0 INFINITI CATHETER FR 5 was advanced over a wire. OMNIPAQUE, 350 MG, 150ML 150ML was us ed for 13:49:43 injections. Recorded Pressure: Ao, HR=51, Condition=Condition 1 13:50:42 (Aorta) Ao 130/62/89 13:50:49 The LCA was injected and visualized at various angles. OMNIPAQUE, 350 MG, 150ML 150ML used . 13:51:54 HR=54 bpm, WBUV=263/74 mmhg, SpO2=92.0 %, Resp=15 B/min, Pain=0, Dee=10, Winchester=2 13:53:19 Catheter was removed 13:54:01 VASCADE, FR5 CLOSURE SYSTEM FR 5 placement in the Fem Art (right) 13:56:16 HR=53 bpm, WIRU=443/79 mmhg, SpO2=96.0 %, Resp=40 B/min, Pain=0, Dee=10, Winchester=2 13:56:54 Case End 13:56:56 Catheter(s) removed without difficulty Assessment: Final Case, HR=58 BPM, Rhythm=nsr, RRGC=979/79 mmhg, Chest Pain=0, Edema=None, Col or=Normal, Skin = Warm, Dry Right Pulses: Teofilo Ped=1, Femoral=1 13:57:03 Left Pulses: Teofilo Ped=1, Femoral=1 Neurological: State=Alert, Ox3, FRANCIS Respiration: Resp=15 B/min, SpO2=96 % 13:57:49 No case complications noted. 13:57:50 Cine recording checked. 13:57:52 Bedside Report will be given. 13:57:54 Contrast Scanned 13:57:55 Verbal Stimulation=2 Physical Stimulation=2 Airway=2 Respiration=2 TOTAL=8. (0=absent, 1=l imited, 2=present) 13:58:02 A Left Heart Cath was performed. 14:01:19 HR=48 bpm, IEEB=308/64 mmhg, SpO2=96.0 %, Resp=12 B/min, Pain=0, Dee=10, Winchester=2 14:06:12 Sterile dressing applied to site 14:06:13 Vitals capture stopped. 14:06:15 Patient moved to [facility] End Study - Contrast Media Used In Study Contrast Total Opened (mL) Total Used (mL) Total Wasted (mL) Omnipaque 50 50 0 End Study - Maximum Contrast Load Max Contrast Load (mL) 575.0 End Study - Radiation Exposure Fluoro Time (minutes) 2.6 End Study - Patient Disposition Complications Transferred To Interventional Outcome No Junior Marketing Associate Holding No attempt made
[2017-04-21] MEDS ORDERED: LIDOCAINE HCL 1% 50 ML VIAL INFIL PRN (14:15)
[2017-04-21] MEDS ORDERED: MORPHINE SULFATE 4 MG/ML INJ IV PRN (14:15)
[2017-04-21] MEDS ORDERED: ATROPINE SULFATE 1 MG/ML VIAL IV PRN (14:15)
[2017-04-21] MEDS ORDERED: ONDANSETRON HCL 4 MG/2 ML VIAL IV PRN (14:15)
[2017-04-21] MEDS ORDERED: NITROGLYCERIN 0.4 MG SL 25 TABS/BTL SL PRN (14:15)
--- NOTE | 2017-04-21 15:03 | EKG ---
Date Performed: 04/20/2017 Time Performed: 13:19:42 PTAGE: 66 years EKG: Sinus rhythm MODERATE INTRAVENTRICULAR CONDUCTION DELAY BORDERLINE ECG PREVIOUS TRACING 01/17/2015 16.44.20 Since previous tracing, no significant change noted DOCTOR: Felecia Ballesteros Interpretating Date/Time 04/21/2017 15:03:15
[2017-04-21] MEDS ORDERED: IOHEXOL 350 MG/ML 50 ML BTL (for Cath Lab) OTHER ONE (15:58)
--- NOTE | 2017-04-21 16:08 | MA ---
cc: MERLYNELI Menjivar DATE: 04/21/2017 DATE OF : 1950 PROCEDURE PERFORMED 1. Left heart catheterization. 2. Selective right and left coronary angiography. 3. Left ventriculogram. 4. Selective right common femoral artery angiography. INDICATION Angina / positive stress test, approach right transfemoral DESCRIPTION OF PROCEDURE Consent signed. The patient was brought into the cardiac lab rep in fasting state. The groin was prepped and draped in sterile fashion using 1% lidocaine for local anesthesia and a micropuncture kit. A 5-Sinhala sheath was inserted into the right common femoral artery right common femoral artery angiography was performed to confirm position of the sheath, then selective right and left coronary angiography was performed with a JR-4 and JL-4 diagnostic catheters. Angiography was taken in multiple views. The JR-4 diagnostic catheter was introduced into the ventricle over a wire the was followed by pressure recordings, left ventriculogram and pullback. The patient tolerated the procedure well without complications. Estimated blood loss less than 30 mL total contrast used 50 mL. The right groin access site was closed with a Vascade closure device. RESULTS LEFT VENTRICLE The left ventricular pressure was 140/90 with an LVEDP of 15. The aortic pressure was 130/62 with a mean of 89. There was no gradient upon pullback from the left ventricle to aorta. Left ventriculogram revealed symmetrically pat ventricle with an estimated ejection fraction of 50%. ANGIOGRAPHIC RESULTS 1. The right coronary artery. The right coronary artery is a dominant vessel is giving off the PDA. It has minimal luminal irregularities throughout however for the most part patent is giving some collaterals to an epicardial vessels to the distal LAD. 2. Left main has mild calcification, with a 0, 1, 1 Matthews bifurcation lesion. 3. The LAD is a transapical vessel is diffusely diseased. He has a proximal ostial lesion of 99% and a mid lesion of 80%, The left anterior descending is also giving one diagonal. The diagonal has minimal irregularities and 60% lesion proximally. 4. The left circumflex artery. Left circumflex artery has a 90% lesion on its proximal segment. The vessel is giving three OM branches which are patent with NONA III flow and nonobstructive coronary artery disease. CONCLUSION Severe two-vessel coronary artery disease including the ostium of the left anterior descending and the left circumflex artery with preserved systolic function. RECOMMENDATIONS: The patient will be admitted to [facility] he will be consulted to CT surgery for coronary artery bypass graft. In the meantime we will continue aggressive medical management for coronary artery disease including heparin drip. MD LEOLA Lemus/ronda /2:00 PM /3:11 PM ROLDAN
--- NOTE | 2017-04-21 16:31 | PD.CAR.PN ---
CVT Progress Note Subjective/Hospital Course: sts discussed with pt RISK SCORES About the STS Risk Calculator Procedure: CAB Only Risk of Mortality: 0.647% Morbidity or Mortality: 8.09% Long Length of Stay: 2.74% Short Length of Stay: 59.725% Permanent Stroke: 0.688% Prolonged Ventilation: 5.227% DSW Infection: 0.313% Renal Failure: 1.044% Reoperation: 3.732% Objective: Vital Signs Date Time Temp Pulse Resp B/P Pulse Ox O2 Delivery O2 Flow Rate FiO2 04/21/17 14:10 95 Room Air 04/21/17 12:00 52 04/21/17 11:44 98.1 56 18 128/66 97 04/21/17 08:00 62 04/21/17 07:36 97.4 60 18 146/75 97 04/21/17 05:29 98.4 62 18 134/63 97 04/21/17 04:00 50 04/21/17 00:44 98.4 77 18 150/74 97 04/21/17 00:00 61 04/20/17 21:18 98.4 67 18 149/69 95 04/20/17 20:32 59 18 175/84 96 Result Diagram: 04/20/17 1345 04/20/17 1345 Pauline Rodriguez Apr 21, 2017 16:31
--- NOTE | 2017-04-21 17:26 | EKG ---
Date Performed: 04/20/2017 Time Performed: 22:12:11 PTAGE: 66 years EKG: Sinus rhythm WITH FIRST DEGREE AV BLOCK ST DEVIATION AND MODERATE T-WAVE ABNORMALITY, CONSIDER ANTERIOR ISCHEMIA ABNORMAL ECG Since PREVIOUS TRACING , no significant change noted PREVIOUS TRACIN04/20/2017 13.19 DOCTOR: Felecia Ballesteros Interpretating Date/Time 04/21/2017 17:25:40
--- NOTE | 2017-04-21 17:30 | TR ---
Date Performed: 04/20/2017 Time Performed: 17:35:09 DOCTOR: Felecia Ballesteros DRUG LIST: CLINICAL HISTORY: CHEST PAIN REASON FOR TEST: Chest pain REASON FOR ENDING: OBSERVATION: CONCLUSION: Lawrence protocol performed. Test stopped secondary to ST segment depression V3-V6. V2 elevation during same time depression noted. Shortness of breath also reported. No reprod chest disc omfort. Maximum CG=816 Target HR Achieved=81.0% Maximum QL=359/88 Total Exercise Time=3:41. During r ecovery st returned to baseline however t wave inversion anterior lateral. Arrhythmia short run noted in recovery. Recovery quick and without complaints. COMMENTS:
[2017-04-21 17:35] LABS: HEMATOCRIT 41.9 % (39.0-51.0); MEAN CELL VOLUME 88.9 FL (80.0-100.0); MEAN CORPUSCULAR HEMOGLOBIN 31.9 PG (27.0-34.0); MEAN CORPUSCULAR HGB CONC 35.9 % (32.0-36.0); PLATELET COUNT 186 TH/MM3 (150-450); RED BLOOD COUNT 4.72 MIL/MM3 (4.50-5.90); RED CELL DISTRIBUTION WIDTH 15.2 % (11.6-17.2); REVIEW FLAG FINAL; WHITE BLOOD COUNT 8.2 TH/MM3 (4.0-11.0)
[2017-04-21 17:36] LABS: APTT (PATIENT) 25.9 SEC (24.3-30.1); PROTHROMBIN TIME - PATIENT 11.3 SEC (9.8-11.6)
[2017-04-21] MEDS ORDERED: HEPARIN SODIUM - IV 10,000 UNITS/10 ML VIAL ONE (17:40)
[2017-04-21] MEDS: HEPARIN-D5W INJ 250 ML IV SCH (17:45)
--- NOTE | 2017-04-21 18:08 | RADRPT ---
EXAM DATE/TIME: 04/21/2017 17:04 [place] COMPARISON: No previous studies available for comparison. INDICATIONS : Cerebrovascular accident. MEDICAL HISTORY : Hypercholesterolemia. Hypertension. Thyroid disease. CVA. SURGICAL HISTORY : Right hip. ENCOUNTER: Initial ACUITY: 1 day PAIN SCORE: 3/10 LOCATION: Bilateral neck PEAK SYSTOLIC VELOCITIES (cm/sec): ICA/CCA RATIO: Right: 1.0 Left: 0.9 ICA: Right: 75.8 Left: 76.8 CCA: Right: 72.5 Left: 86.5 ECA: Right: 92.4 Left: 86.6 VERTEBRAL: Right: 53.2 antegrade Left: 43.5 antegrade Elevated flow velocities and ICA/CCA ratios have been found to correlate with increased degrees of vessel stenosis, calculated as percentage of diameter relative to a normal segment of distal ICA/CCA FINDINGS: RIGHT CAROTID: Mild calcified plaque in the bulb. No significant stenosis is visualized. The waveforms are within n ormal limits. LEFT CAROTID: Mild mid to distal common carotid artery plaque extending to the bulb. No significant stenosis is vis ualized. The waveforms are within normal limits. VERTEBRAL ARTERIES: Antegrade flow is seen in both vertebral arteries. MISCELLANEOUS: None. CONCLUSION: 1. No hemodynamically significant flow limiting stenosis in the carotid arteries. 2. Antegrade vertebral artery flow bilaterally. Eliud Jauregui MD on April 21, 2017 at 18:04 Board Certified Radiologist. This report was verified electronically.
[2017-04-21] MEDS: NITROGLYCERIN 2% OINT 1 GM PACKET TOPICAL SCH (19:00)
[2017-04-21] MEDS ORDERED: HEPARIN SODIUM - IV 10,000 UNITS/10 ML VIAL IV PRN (20:15)
[2017-04-21] MEDS: ATORVASTATIN 80 MG TAB PO SCH (21:15)
[2017-04-21] MEDS: TAMSULOSIN HCL 0.4 MG CAP PO SCH (21:15)
[2017-04-21 22:24] LABS: HEMOGLOBIN A1a 1.2 %; HEMOGLOBIN A1b 1.7 %; HEMOGLOBIN P3 3.8 %
[2017-04-22] VITALS (23 sets, daily range): BP systolic 103–158; BP diastolic 53–84; PULSE 48–72; RESP 18; TEMP 98–98.8; O2SAT 94–98
[2017-04-22] MEDS: NITROGLYCERIN 2% OINT 1 GM PACKET TOPICAL SCH ×4 (00:08→17:25)
[2017-04-22 01:08] LABS: APTT (PATIENT) 37.1 SEC (24.3-30.1)
[2017-04-22] MEDS: HEPARIN SODIUM - IV 10,000 UNITS/10 ML VIAL IV PRN ×2 (01:54→22:30)
[2017-04-22] MEDS: LEVOTHYROXINE SODIUM 50 MCG TAB PO SCH (05:35)
[2017-04-22 06:10] LABS: AUTOMATED NEUTROPHIL # 5.6 TH/MM3 (1.8-7.7); BASOPHIL # 0.1 TH/MM3 (0-0.2); BASOPHIL % 1.1 % (0.0-2.0); EOSINOPHIL # 0.2 TH/MM3 (0-0.4); EOSINOPHIL % 1.9 % (0.0-4.0); HEMATOCRIT 42.5 % (39.0-51.0); HEMO FLAGS DIFF FINAL; LYMPH % 27.2 % (9.0-44.0); LYMPHOCYTE # 2.5 TH/MM3 (1.0-4.8); MEAN CELL VOLUME 91.2 FL (80.0-100.0); MEAN CORPUSCULAR HEMOGLOBIN 30.8 PG (27.0-34.0); MEAN CORPUSCULAR HGB CONC 33.8 % (32.0-36.0); MONO % 8.6 % (0.0-8.0); NEUT % 61.2 % (16.0-70.0); PLATELET COUNT 187 TH/MM3 (150-450); RED BLOOD COUNT 4.66 MIL/MM3 (4.50-5.90); RED CELL DISTRIBUTION WIDTH 15.4 % (11.6-17.2); WHITE BLOOD COUNT 9.1 TH/MM3 (4.0-11.0)
[2017-04-22 06:32] LABS: BICARBONATE 29.4 MEQ/L (21.0-32.0); POTASSIUM 3.3 MEQ/L (3.5-5.1)
[2017-04-22 06:36] LABS: HDL CHOLESTEROL 48.6 MG/DL (40.0-60.0)
[2017-04-22] MEDS: ASPIRIN 325 MG TAB PO SCH (08:41)
[2017-04-22] MEDS: SODIUM CHLORIDE 0.9% FLUSH 10 ML FLUSH IV FLUSH SCH ×2 (08:41→20:50)
[2017-04-22] MEDS: METOPROLOL TARTRATE 25 MG TAB PO SCH ×2 (08:42→20:50)
--- NOTE | 2017-04-22 09:44 | PD.CARD.PN ---
Subjective Subjective Remarks CV stable Objective Medications Current Medications Medications (Trade) Dose Ordered Sig/Aleta Route Start Time Stop Time Status Last Admin (NS Flush) 2 ml UNSCH PRN IVF 04/20/17 13:30 (NS Flush) 2 ml BID IV FLUSH 04/20/17 21:00 04/21/17 21:16 (Tylenol) 500 mg Q4H PRN PO 04/20/17 15:15 (Zofran Inj) 4 mg Q6H PRN IV 04/20/17 15:15 (Nitrostat Sl) 0.4 mg Q5M PRN SL 04/20/17 15:15 (Aspirin) 325 mg DAILY PO 04/21/17 09:00 04/22/17 08:41 (Lipitor) 80 mg HS PO 04/20/17 21:00 04/21/17 21:15 (Synthroid) 50 mcg DAILY@06 PO 04/21/17 06:00 04/22/17 05:35 (Flomax) 0.4 mg HS PO 04/20/17 21:00 04/21/17 21:15 (Prinivil) 10 mg DAILY PO 04/21/17 09:00 Hold 04/21/17 07:49 (Nitroglycerin 2% Oint) 0.5 inch Q6HR TOPICAL 04/21/17 19:00 04/22/17 05:35 (Lopressor) 12.5 mg Q12HR PO 04/20/17 21:00 04/22/17 08:42 (Microzide) 12.5 mg DAILY PO 04/21/17 09:00 Hold 04/21/17 07:49 (Pill Splitter) 1 ea UNSCH PRN OTHER 04/20/17 19:00 (Atropine Inj) 0.5 mg UNSCH PRN IV 04/21/17 14:15 (Zofran Inj) 4 mg Q4H PRN IV 04/21/17 14:15 (Xylocaine 1% Inj (50 ml)) 10 ml UNSCH PRN INFIL 04/21/17 14:15 04/22/17 14:14 (Nitrostat Sl) 0.4 mg Q5M PRN SL 04/21/17 14:15 (Morphine Inj) 2 mg Q30M PRN IV 04/21/17 14:15 (Heparin Inj) 5,000 units UNSCH PRN IV 04/21/17 20:15 Heparin Sodium (Porcine) 2500 units 2,500 units UNSCH PRN IV 04/21/17 20:15 04/22/17 01:54 (Heparin-D5W Inj) 250 ml @ 0 mls/hr TITRATE IV 04/21/17 14:15 04/21/17 17:45 Vital Signs / I&O Vital Signs Date Time Temp Pulse Resp B/P Pulse Ox O2 Delivery O2 Flow Rate FiO2 04/22/17 06:00 52 04/22/17 05:00 56 04/22/17 04:00 69 04/22/17 03:00 98.5 48 18 103/53 94 04/22/17 03:00 51 04/22/17 02:00 51 04/22/17 01:00 51 04/22/17 00:00 50 04/21/17 23:00 57 04/21/17 23:00 98.5 52 18 121/66 97 04/21/17 22:00 52 04/21/17 21:00 54 04/21/17 20:00 56 04/21/17 19:00 56 04/21/17 19:00 98.6 56 18 126/59 95 04/21/17 18:00 54 04/21/17 17:30 98.4 56 18 138/89 97 04/21/17 17:00 54 04/21/17 16:00 96 04/21/17 14:10 95 Room Air 04/21/17 12:00 52 04/21/17 11:44 98.1 56 18 128/66 97 I/O 04/21/17 04/21/17 04/21/17 04/22/17 04/22/17 04/22/17 07:00 15:00 23:00 07:00 15:00 23:00 Intake Total 480 ml Balance 480 ml Intake Oral 480 ml # Voids 1 Physical Exam GENERAL: Well-nourished, well-developed patient. SKIN: Warm and dry. HEAD: Normocephalic. EYES: No scleral icterus. No injection or drainage. NECK: Supple, trachea midline. No JVD or lymphadenopathy. CARDIOVASCULAR: Regular rate and rhythm without murmurs, gallops, or rubs. RESPIRATORY: Breath sounds equal bilaterally. No accessory muscle use. GASTROINTESTINAL: Abdomen soft, non-tender, nondistended. EXTREMITIES: No cyanosis, or edema. NEUROLOGICAL: Awake, alert, and oriented x 3. Non-focal. Laboratory Laboratory Tests Test 04/21/17 04/21/17 04/22/17 17:02 23:42 04:49 White Blood Count 8.2 TH/MM3 9.1 TH/MM3 Red Blood Count 4.72 MIL/MM3 4.66 MIL/MM3 Hemoglobin 15.0 GM/DL 14.4 GM/DL Hematocrit 41.9 % 42.5 % Mean Corpuscular Volume 88.9 FL 91.2 FL Mean Corpuscular Hemoglobin 31.9 PG 30.8 PG Mean Corpuscular Hemoglobin 35.9 % 33.8 % Concent Red Cell Distribution Width 15.2 % 15.4 % Platelet Count 186 TH/MM3 187 TH/MM3 Mean Platelet Volume 7.2 FL 7.2 FL Prothrombin Time 11.3 SEC Prothromb Time International 1.0 RATIO Ratio Activated Partial 25.9 SEC 37.1 SEC Thromboplast Time Hemoglobin A1c 5.6 % Neutrophils (%) (Auto) 61.2 % Lymphocytes (%) (Auto) 27.2 % Monocytes (%) (Auto) 8.6 % Eosinophils (%) (Auto) 1.9 % Basophils (%) (Auto) 1.1 % Neutrophils # (Auto) 5.6 TH/MM3 Lymphocytes # (Auto) 2.5 TH/MM3 Monocytes # (Auto) 0.8 TH/MM3 Eosinophils # (Auto) 0.2 TH/MM3 Basophils # (Auto) 0.1 TH/MM3 CBC Comment DIFF FINAL Differential Comment Sodium Level 137 MEQ/L Potassium Level 3.3 MEQ/L Chloride Level 101 MEQ/L Carbon Dioxide Level 29.4 MEQ/L Anion Gap 7 MEQ/L Blood Urea Nitrogen 15 MG/DL Creatinine 0.88 MG/DL Estimat Glomerular Filtration 86 ML/MIN Rate Random Glucose 95 MG/DL Calcium Level 8.6 MG/DL Triglycerides Level 130 MG/DL Cholesterol Level 138 MG/DL LDL Cholesterol 63 MG/DL HDL Cholesterol 48.6 MG/DL Cholesterol/HDL Ratio 2.83 RATIO Imaging Last Impressions Carotid Artery Ultrasound 04/21/17 0000 Signed Impressions: Service Date/Time: April 17:04 - CONCLUSION: 1. No hemodynamically significant flow limiting stenosis in the carotid arteries. 2. Antegrade vertebral artery flow bilaterally. Eliud Bozorgmanesh, MD Chest X-Ray 04/20/17 1324 Signed Impressions: Service Date/Time: Thursday, April 20, 2017 13:30 - CONCLUSION: 1. No acute cardiopulmonary disease. Eliud Jauregui MD Assessment and Plan Problem List: (1) Chest pain Assessment and Plan: Severe 2 vessel CAD Preserved EF Awaiting CABG (Tuesday) Recommendations: 1. Cont Heparin drip 2. Aggressive medical management for CAD Vidal Pate MD Apr 22, 2017 09:44
[2017-04-22 10:51] LABS: APTT (PATIENT) 39.5 SEC (24.3-30.1)
[2017-04-22] MEDS ORDERED: INSULIN REGULAR (IV INFUSION) 100 UNITS in SODIUM CHLORIDE 0.9% INJ 100 ML IV SCH (12:00)
[2017-04-22] MEDS ORDERED: PAPAVERINE INJ 60 MG, NITROGLYCERIN INJ 100 MCG, DILTIAZEM INJ 100 MG in SODIUM CHLORID... IRRIGATION SCH (12:00)
[2017-04-22] MEDS ORDERED: ceFAZolin 2 GM PREMIX 50 ML IV SCH (12:00)
[2017-04-22] MEDS ORDERED: METOPROLOL TARTRATE 25 MG TAB PO SCH (12:00)
[2017-04-22] MEDS ORDERED: CHLORHEXIDINE GLUCONATE 4% SOLN 120 ML BTL TOPICAL SCH (12:00)
[2017-04-22] MEDS ORDERED: CEFAZOLIN INJ 500 MG in SODIUM CHLORIDE 0.9% IRR BTL 500 ML IRRIGATION SCH (12:00)
[2017-04-22] MEDS ORDERED: SODIUM CHLORIDE 0.9% FLUSH 10 ML FLUSH IV FLUSH PRN (12:00)
[2017-04-22] MEDS ORDERED: POTASSIUM CHLORIDE 25 MEQ EFFERVESCENT TAB PO ONE (12:30)
--- NOTE | 2017-04-22 12:35 | MB ---
cc: NIKKY SHELTON MD DATE OF CONSULTATION: 04/22/2017 DATE OF : 1950 HISTORY OF PRESENT ILLNESS A 66-year-old male, patient of Dr. Laura Esquivel at the [facility] and also Dr. Vidal Hawkins. The patient apparently presented to the [facility] for a physical where they noted that his blood pressure was elevated and that he had been feeling fatigued and tired and explained that he had been having some chest pressure off and on for the last six months. The chest pressure was with exertion, mainly when he was working outside [employer]. He did have shortness of breath associated with it and no diaphoresis and no nausea. The patient was admitted to the chest pain center and underwent exercise stress test. It was stopped due to ST elevation in the anterior leads and with the complaint of chest discomfort. He then underwent cardiac cath by Dr. Vidal Hawkins which showed proximal LAD 90%, mid distal LAD 80% and circumflex 90% with EF of 50%. We were consulted to evaluate for coronary artery bypass grafting. PAST MEDICAL HISTORY 1. Hypertension. 2. Hyperlipidemia. 3. Hypothyroidism. 4. Benign prostatic hypertrophy. 5. Hypothyroidism. 6. Obesity. PAST SURGICAL HISTORY Right hip replacement. ALLERGIES No known allergies. MEDICATIONS 1. Lipitor 80 mg p.o. daily. 2. Lisinopril with hydrochlorothiazide 12.5 daily. FAMILY HISTORY Father from a massive heart attack at age 66. Mother at 84 from ovarian cancer. SOCIAL HISTORY The patient smoked for approximately 40 years, two packs per day, quit in 1984. Drinks alcohol socially. No illicit drugs. Has two children. Retired [employer]. 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 REVIEW OF SYSTEMS GENERAL: No night sweats, fever, heat or cold intolerance. SKIN: No psoriasis, itching or hives. HEENT: No blurred vision or hearing loss. RESPIRATORY: Positive for shortness of breath when he had his chest discomfort. CARDIOVASCULAR: As above in the HPI. GASTROINTESTINAL: No diarrhea or vomiting. GENITOURINARY: No burning, frequency, urgency. INS[employer]OR [employer] ELECTRICAL: No history of TIA, CVA, seizure disorder. ENDOCRINE: Positive for hypothyroidism. PHYSICAL EXAMINATION VITAL SIGNS: Blood pressure 113/50, heart rate 60, temperature max 98. GENERAL: Patient is awake, alert, in no acute distress. HEENT: Head is normocephalic, atraumatic. Pupils are equal and reactive. Oral mucosa pink and moist. He does wear dentures. NECK: Supple. No JVD. HEART: Heart sounds S1, S2, regular rate and rhythm. No audible rubs, murmurs or gallops. LUNGS: Clear to auscultation. No wheezes, rales or rhonchi. ABDOMEN: Soft, nontender. No masses or organomegaly. EXTREMITIES: No cyanosis, clubbing or edema. LABORATORY DATA Sodium 137, potassium 3.3, BUN 15, creatinine 0.88, glucose 95, hemoglobin A1c 5.6. Troponins are negative x3. Triglycerides 130, cholesterol 138, LDL 63, HDL 48. IMAGING DATA Carotid ultrasound unremarkable. Chest x-ray unremarkable. Ultrasound of the lower extremities are pending. EKG DATA EKG shows sinus rhythm with no acute change. Per the stress test there was some ST-segment depression in V3 through V6, which resolved after he stopped the exercise. IMPRESSION AND PLAN 1. This is a patient with disease to the LAD and the circumflex, evaluation for coronary artery bypass grafting. The cardiac cath will be evaluated by Dr. Nikky Shelton. The procedures, alternatives and risks will be discussed with the patient and planning will be for surgery on April 25. Will have an educator talk with the family for further information. Continue all medications except for his lisinopril at this time. He is currently on a beta-terry, aspirin and statin. 2. Continue his Flomax for his BPH. 3. Further planning as per Dr. Nikky Shelton. Dictated by: KLAUS Keen Nikky GARZA /11:57 AM 12:32 PM
[2017-04-22] MEDS ORDERED: POTASSIUM CHLORIDE 20 MEQ CONTROLLED RELEASE TAB PO ONE ×2 (13:00→14:00)
--- NOTE | 2017-04-22 13:02 | RADRPT ---
EXAM DATE/TIME: 04/22/2017 12:07 [facility] COMPARISON: No previous studies available for comparison. INDICATIONS : Preop cardiac surgery. MEDICAL HISTORY : Hypercholesterolemia. Hypertension. Hypothyroidism. Coronary artery disease. SURGICAL HISTORY : Right hip replacement. ENCOUNTER: Initial ACUITY: 1 day PAIN SCORE: 0/10 LOCATION: Bilateral legs. TECHNIQUE: Venous ultrasound of the left and right leg was performed from the inguinal ligament to the proximal calf. Real-time, color Doppler and spectral tracing, compression and augmentation techniques were us ed. FINDINGS: RIGHT LEG: There is normal compressibility of the deep venous system from the inguinal region to the proximal ca lf. No echogenic clot is seen in the lumen of the common femoral, femoral, popliteal, and posterior tibial veins. There is a normal response of the venous system to proximal and distal augmentation an d respiration. LEFT LEG: There is normal compressibility of the deep venous system from the inguinal region to the proximal ca lf. No echogenic clot is seen in the lumen of the common femoral, femoral, popliteal, and posterior tibial veins. There is a normal response of the venous system to proximal and distal augmentation an d respiration. CONCLUSION: Negative for deep venous thrombosis. . Nikolay Kelly MD FACR on April 22, 2017 at 13:00 Board Certified Radiologist. This report was verified electronically.
--- NOTE | 2017-04-22 13:03 | RADRPT ---
EXAM DATE/TIME: 04/22/2017 12:19 [facility] COMPARISON: No previous studies available for comparison. INDICATIONS : Preop cardiac surgery. MEDICAL HISTORY : Hypercholesterolemia. Hypertension. Hypothyroidism. Coronary artery disease. SURGICAL HISTORY : Right hip replacement. ENCOUNTER: Initial ACUITY: 1 day PAIN SCORE: 0/10 LOCATION: Bilateral legs. GREATER SAPHENOUS VEIN THIGH: PROXIMAL: Right 4 mm Left 4 mm MID: Right 3 mm Left 4 mm DISTAL: Right 4 mm Left 4 mm CALF: PROXIMAL: Right 3 mm Left 4 mm MID: Right 3 mm Left 3 mm DISTAL: Right 3 mm Left 3 mm FINDINGS: The venous system of the lower extremities are patent by color Doppler imaging. Measurements of the leg veins (in mm) are listed above. CONCLUSION: Venous mapping as described above. Nikolay Kelly MD FACR on April 22, 2017 at 13:01 Board Certified Radiologist. This report was verified electronically.
[2017-04-22 13:31] LABS: BLOOD, URINE NEG (NEG); COMMENT (UR) CULT NOT INDICATED; CULTURE IF INDICATED CULT NOT INDICATED; GLUCOSE,URINE NEG (NEG); KETONE, URINE TRACE mg/dL (NEG); MUCUS URINE FEW /lpf (OCC); NITRITE,URINE NEG (NEG); PH, URINE 5.5 (5.0-8.5); URINE COLOR DARK-YELLOW (YELLW/STRAW)
[2017-04-22] MEDS ORDERED: DOCUSATE SODIUM 50 MG/SENNA 8.6 MG TAB PO ONE (16:30)
[2017-04-22] MEDS ORDERED: MAGNESIUM HYDROXIDE SUSP 30 ML CUP PO ONE (16:30)
[2017-04-22 16:56] LABS: HEMOGLOBIN A1a 1.1 %; HEMOGLOBIN A1b 1.7 %; HEMOGLOBIN Ao 85.1 %; HEMOGLOBIN LA1C 1.8 %; HEMOGLOBIN P3 3.9 %
[2017-04-22] MEDS: HEPARIN-D5W INJ 250 ML IV SCH (17:27)
--- NOTE | 2017-04-22 18:38 | ECHRPT ---
Indication: chest pain CONCLUSIONS The left ventricular systolic function is low normal with an estimated ejection fraction in the rang e of 50- 55%. Moderate concentric left ventricular hypertrophy. Trace mitral valve regurgitation. Trace aortic valve regurgitation. There is trace tricuspid valve regurgitation. BP: 128 / 66 HR: 52 Rhythm: MEASUREMENTS (Male / Female) Normal Values Technical Quality: 2D ECHO LV Diastolic Diameter PLAX 3.9 cm 4.2 - 5.9 / 3.9 - 5.3 cm LV Systolic Diameter PLAX 2.8 cm IVS Diastolic Thickness 1.6 cm 0.6 - 1.0 / 0.6 - 0.9 cm LVPW Diastolic Thickness 1.3 cm 0.6 - 1.0 / 0.6 - 0.9 cm LV Relative Wall Thickness 0.8 RV Internal Dim ED PLAX 3.1 cm LVOT Diameter 2.1 cm M-MODE Aortic Root Diameter MM 3.4 cm LA Systolic Diameter MM 3.9 cm LA Ao Ratio MM 1.1 AV Cusp Separation MM 2.0 cm DOPPLER Mitral E Point Velocity 77.4 cm/s Mitral A Point Velocity 82.8 cm/s Mitral E to A Ratio 0.9 LV E' Lateral Velocity 6.4 cm/s Mitral E to LV E' Lateral Ratio 12.0 FINDINGS LEFT VENTRICLE Normal left ventricular size. The left ventricular systolic function is low normal with an estimated ejection fraction in the rang e of 50- 55%. Moderate concentric left ventricular hypertrophy. RIGHT VENTRICLE Normal right ventricular size and systolic function. LEFT ATRIUM The left atrial size is upper limits of normal. RIGHT ATRIUM The right atrium is not well visualized. ATRIAL SEPTUM The interatrial septum not well visualized. AORTA The aortic root and proximal ascending aorta are normal in size on limited imaging. MITRAL VALVE Structurally normal mitral valve. Trace mitral valve regurgitation. No mitral valve stenosis. AORTIC VALVE Trileaflet aortic valve Trace aortic valve regurgitation. No aortic valve stenosis. TRICUSPID VALVE Structurally normal tricuspid valve. There is trace tricuspid valve regurgitation. No tricuspid valve stenosis. PULMONARY VALVE The pulmonary valve is not well visualized. PERICARDIUM No pericardial effusion. Deric Gordon DO (Electronically Signed) Final Date:22 April 2017 18:37
[2017-04-22 20:33] LABS: APTT (PATIENT) 36.6 SEC (24.3-30.1)
[2017-04-22] MEDS: ATORVASTATIN 80 MG TAB PO SCH (20:50)
[2017-04-22] MEDS: TAMSULOSIN HCL 0.4 MG CAP PO SCH (20:50)
[2017-04-22] MEDS ORDERED: SODIUM CHLORIDE 0.9% FLUSH 10 ML FLUSH IV FLUSH SCH (21:00)
--- NOTE | 2017-04-22 21:28 | HHI.PR ---
Subjective Remarks Patient seen today around noon. Says he is feeling well. Denies any chest pain or shortness of breath. Says she is constipated. Vitals any abdominal pain. Denies any nausea. Awaiting CABG on Tuesday Objective Vital Signs Date Time Temp Pulse Resp B/P Pulse Ox O2 Delivery O2 Flow Rate FiO2 04/22/17 18:20 61 04/22/17 17:29 58 04/22/17 15:45 61 04/22/17 15:45 98.4 64 18 114/60 95 04/22/17 14:03 61 04/22/17 13:08 58 04/22/17 12:10 63 04/22/17 11:33 60 04/22/17 11:33 98.0 57 18 113/54 94 04/22/17 10:22 61 04/22/17 10:14 95 21 04/22/17 09:00 68 04/22/17 08:40 98.2 66 18 110/58 95 04/22/17 08:40 52 04/22/17 06:00 52 04/22/17 05:00 56 04/22/17 04:00 69 04/22/17 03:00 98.5 48 18 103/53 94 04/22/17 03:00 51 04/22/17 02:00 51 04/22/17 01:00 51 04/22/17 00:00 50 04/21/17 23:00 57 04/21/17 23:00 98.5 52 18 121/66 97 04/21/17 22:00 52 I/O 04/21/17 04/21/17 04/21/17 04/22/17 04/22/17 04/22/17 07:00 15:00 23:00 07:00 15:00 23:00 Intake Total 480 ml 610 ml Balance 480 ml 610 ml Intake Oral 480 ml 480 ml IV Total 130 ml # Voids 1 3 # Bowel Movements 1 Result Diagram: 04/22/17 0449 04/22/17 0449 Objective Remarks GENERAL: walking around in room. Appears comfortable. Alert and oriented 3. SKIN: Warm and dry. HEAD: Normocephalic. EYES: No scleral icterus. No injection or drainage. NECK: Supple, trachea midline. No JVD. CARDIOVASCULAR: Regular rate and rhythm without murmurs, gallops, or rubs. RESPIRATORY: Breath sounds equal bilaterally. No accessory muscle use. GASTROINTESTINAL: Abdomen soft, non-tender, nondistended. MUSCULOSKELETAL: No cyanosis, or edema. BACK: Nontender without obvious deformity. No CVA tenderness. A/P Assessment and Plan 66-year-old male with a past medical history of HTN, HLD, BPH, hypothyroidism who presented with episodes of chest pain and shortness of breath with exertion //Chest pain: With episodes that sound like typical angina. The patient had positive ischemic changes during treadmill stress testing with the chest pain center. Troponins and EKGs unremarkable 3. Cardiology consulted, appreciate input. Started on aspirin, Nitropaste, and metoprolol. Continue lisinopril and atorvastatin. Monitor on telemetry. -CABG planned for Tuesday. Appreciate cardiovascular surgery and cardiology assistance //Constipation. Laxatives ordered. //Hypertension: Well controlled. Continue home lisinopril, tamsulosin, and HCTZ. -Continue metoprolol. -Continue to monitor and adjust blood pressure medications as necessary //Hypothyroidism: Chronic. Continue home levothyroxine. DVT prophylaxis: SCDs Discharge Planning CABG on Tuesday. Michael Vallejo MD Apr 22, 2017 21:28
[2017-04-23] VITALS (28 sets, daily range): BP systolic 122–148; BP diastolic 65–82; PULSE 50–67; RESP 16–20; TEMP 97.9–98.7; O2SAT 94–98
[2017-04-23] MEDS: NITROGLYCERIN 2% OINT 1 GM PACKET TOPICAL SCH ×5 (00:53→23:55)
[2017-04-23] MEDS: HEPARIN-D5W INJ 250 ML IV SCH ×2 (05:41→23:55)
[2017-04-23] MEDS: LEVOTHYROXINE SODIUM 50 MCG TAB PO SCH (05:43)
[2017-04-23 08:05] LABS: APTT (PATIENT) 45.3 SEC (24.3-30.1)
[2017-04-23] MEDS: METOPROLOL TARTRATE 25 MG TAB PO SCH ×2 (09:00→20:33)
[2017-04-23] MEDS: ASPIRIN 325 MG TAB PO SCH (09:17)
[2017-04-23] MEDS: SODIUM CHLORIDE 0.9% FLUSH 10 ML FLUSH IV FLUSH SCH ×2 (09:17→21:00)
--- NOTE | 2017-04-23 10:04 | HHI.PR ---
Subjective Remarks The patient had just come back after taking a shower. He said he felt well. He still has some shortness of breath with ambulation. No chest pain. Sleeping well. Has been having bowel movements. Requests something be available for anxiety if needed. Discussed with family. Objective Vitals Vital Signs Date Time Temp Pulse Resp B/P Pulse Ox O2 Delivery O2 Flow Rate FiO2 04/23/17 06:00 55 04/23/17 05:26 96 04/23/17 05:00 50 04/23/17 04:00 53 04/23/17 03:00 98.7 61 18 122/65 94 04/23/17 03:00 54 04/23/17 02:00 54 04/23/17 01:00 56 04/23/17 00:00 52 04/22/17 23:00 98.3 59 18 158/84 97 04/22/17 23:00 56 04/22/17 22:00 58 04/22/17 21:00 58 04/22/17 20:00 72 04/22/17 19:00 62 04/22/17 19:00 98.8 61 18 140/67 98 04/22/17 18:20 61 04/22/17 17:29 58 04/22/17 15:45 61 04/22/17 15:45 98.4 64 18 114/60 95 04/22/17 14:03 61 04/22/17 13:08 58 04/22/17 12:10 63 04/22/17 11:33 60 04/22/17 11:33 98.0 57 18 113/54 94 04/22/17 10:22 61 04/22/17 10:14 95 21 I/O 04/22/17 04/22/17 04/22/17 04/23/17 04/23/17 04/23/17 07:00 15:00 23:00 07:00 15:00 23:00 Intake Total 480 ml 610 ml 480 ml Output Total 1000 ml Balance 480 ml 610 ml -520 ml Intake Oral 480 ml 480 ml 480 ml IV Total 130 ml Output Urine Total 1000 ml # Voids 1 3 # Bowel Movements 1 Result Diagram: 04/22/17 0449 04/22/17 0449 Imaging Last Impressions Lower Extremity Ultrasound 04/22/17 0000 Signed Impressions: Service Date/Time: Saturday, April 22, 2017 12:19 - CONCLUSION: Venous mapping as described above. Nikolay Kelly MD FACR Carotid Artery Ultrasound 04/21/17 0000 Signed Impressions: Service Date/Time: April 17:04 - CONCLUSION: 1. No hemodynamically significant flow limiting stenosis in the carotid arteries. 2. Antegrade vertebral artery flow bilaterally. Eliud Jauregui MD Chest X-Ray 04/20/17 1324 Signed Impressions: Service Date/Time: Thursday, April 20, 2017 13:30 - CONCLUSION: 1. No acute cardiopulmonary disease. Eliud Jauregui MD Objective Remarks GENERAL: Appears comfortable. SKIN: Warm and dry. HEAD: Normocephalic. EYES: No scleral icterus. No injection or drainage. NECK: Supple, trachea midline. No JVD. CARDIOVASCULAR: Regular rate and rhythm without murmurs, gallops, or rubs. RESPIRATORY: Breath sounds equal bilaterally. No accessory muscle use. GASTROINTESTINAL: Abdomen soft, non-tender, nondistended. MUSCULOSKELETAL: No cyanosis, or edema. BACK: Nontender without obvious deformity. No CVA tenderness. NEURO: Alert and oriented x 3. PSYCH: Mood and affect appropriate. Medications and IVs Current Medications Medications (Trade) Dose Ordered Sig/Aleta Route Start Time Stop Time Status Last Admin (NS Flush) 2 ml UNSCH PRN IVF 04/20/17 13:30 (NS Flush) 2 ml BID IV FLUSH 04/20/17 21:00 04/23/17 09:17 (Tylenol) 500 mg Q4H PRN PO 04/20/17 15:15 (Zofran Inj) 4 mg Q6H PRN IV 04/20/17 15:15 (Nitrostat Sl) 0.4 mg Q5M PRN SL 04/20/17 15:15 (Aspirin) 325 mg DAILY PO 04/21/17 09:00 04/23/17 09:17 (Lipitor) 80 mg HS PO 04/20/17 21:00 04/22/17 20:50 (Synthroid) 50 mcg DAILY@06 PO 04/21/17 06:00 04/23/17 05:43 (Flomax) 0.4 mg HS PO 04/20/17 21:00 04/22/17 20:50 (Prinivil) 10 mg DAILY PO 04/21/17 09:00 Hold 04/21/17 07:49 (Nitroglycerin 2% Oint) 0.5 inch Q6HR TOPICAL 04/21/17 19:00 04/23/17 05:43 (Lopressor) 12.5 mg Q12HR PO 04/20/17 21:00 04/22/17 20:50 (Microzide) 12.5 mg DAILY PO 04/21/17 09:00 Hold 04/21/17 07:49 (Pill Splitter) 1 ea UNSCH PRN OTHER 04/20/17 19:00 (Atropine Inj) 0.5 mg UNSCH PRN IV 04/21/17 14:15 (Zofran Inj) 4 mg Q4H PRN IV 04/21/17 14:15 (Nitrostat Sl) 0.4 mg Q5M PRN SL 04/21/17 14:15 (Morphine Inj) 2 mg Q30M PRN IV 04/21/17 14:15 (Heparin Inj) 5,000 units UNSCH PRN IV 04/21/17 20:15 Heparin Sodium (Porcine) 2500 units 2,500 units UNSCH PRN IV 04/21/17 20:15 04/22/17 22:30 (Heparin-D5W Inj) 250 ml @ 0 mls/hr TITRATE IV 04/21/17 14:15 04/23/17 05:41 A/P Assessment and Plan Chest pain/ CAD The patient had positive ischemic changes during treadmill stress testing with the chest pain center. Troponins and EKGs unremarkable 3. Cardiology consulted, appreciate input. S/p cath which revealed Severe 2 vessel CAD, normal EF. CTS consult appreciated. - Started on aspirin, Nitropaste, and metoprolol. Continue lisinopril and atorvastatin. - Monitor on telemetry. - CABG planned for Tuesday per CTS. Hypertension Well controlled. - Continue home lisinopril, tamsulosin, and HCTZ. Continue metoprolol. Hypokalemia S/p repletion. - repeat BMP pending. DVT prophylaxis: SCDs Discharge Planning Awaiting CABG Fernando Simmons DO Apr 23, 2017 10:04
[2017-04-23] MEDS ORDERED: ALPRAZolam 0.25 MG TAB PO PRN (10:15)
[2017-04-23] MEDS: DOCUSATE SODIUM 100 MG CAP PO SCH ×2 (11:44→20:33)
[2017-04-23 16:39] LABS: APTT (PATIENT) 41.5 SEC (24.3-30.1)
[2017-04-23 17:07] LABS: POTASSIUM 3.7 MEQ/L (3.5-5.1)
[2017-04-23] MEDS: TAMSULOSIN HCL 0.4 MG CAP PO SCH (20:32)
[2017-04-23] MEDS: ATORVASTATIN 80 MG TAB PO SCH (20:32)
[2017-04-24] VITALS (28 sets, daily range): BP systolic 121–153; BP diastolic 58–77; PULSE 52–96; RESP 16–22; TEMP 98–98.6; O2SAT 92–98
[2017-04-24] MEDS: LEVOTHYROXINE SODIUM 50 MCG TAB PO SCH (05:45)
[2017-04-24] MEDS: NITROGLYCERIN 2% OINT 1 GM PACKET TOPICAL SCH ×4 (05:45→23:50)
--- NOTE | 2017-04-24 08:22 | PD.CAR.PN ---
CVT Progress Note Subjective/Hospital Course: Clinically stable OR tomorrow second case Objective: Vital Signs Date Time Temp Pulse Resp B/P Pulse Ox O2 Delivery O2 Flow Rate FiO2 04/24/17 06:00 59 04/24/17 05:00 55 04/24/17 04:00 98.0 59 20 133/75 97 04/24/17 04:00 56 04/24/17 03:00 61 04/24/17 02:00 52 04/24/17 01:00 57 04/24/17 00:00 55 04/23/17 23:59 98.4 57 20 140/73 94 04/23/17 23:00 58 04/23/17 22:00 59 04/23/17 22:00 57 04/23/17 21:00 57 04/23/17 20:00 58 04/23/17 20:00 98.5 58 20 132/77 97 04/23/17 19:00 58 04/23/17 18:30 62 04/23/17 17:00 56 04/23/17 16:00 56 04/23/17 15:45 97.9 59 16 129/65 94 04/23/17 15:00 57 04/23/17 14:00 60 04/23/17 13:00 66 04/23/17 12:05 21 04/23/17 12:00 60 04/23/17 11:25 98.1 63 16 148/82 97 04/23/17 11:00 67 04/23/17 10:00 63 04/23/17 09:00 58 Result Diagram: 04/22/17 0449 04/23/17 1629 (1) Chest pain Plan: Severe 2 vessel CAD Preserved EF Awaiting CABG (Tuesday) Recommendations: 1. Cont Heparin drip 2. Aggressive medical management for CAD Giovani Foster MD Apr 24, 2017 08:22
[2017-04-24] MEDS: DOCUSATE SODIUM 100 MG CAP PO SCH ×2 (09:00→21:00)
[2017-04-24] MEDS: SENNOSIDES 8.6 MG TAB PO SCH (09:00)
[2017-04-24] MEDS: ASPIRIN 325 MG TAB PO SCH (09:01)
[2017-04-24] MEDS: METOPROLOL TARTRATE 25 MG TAB PO SCH ×2 (09:01→20:51)
[2017-04-24] MEDS: SODIUM CHLORIDE 0.9% FLUSH 10 ML FLUSH IV FLUSH SCH ×2 (09:03→21:00)
[2017-04-24 09:13] LABS: HEMATOCRIT 40.1 % (39.0-51.0); MEAN CELL VOLUME 90.8 FL (80.0-100.0); MEAN CORPUSCULAR HEMOGLOBIN 30.6 PG (27.0-34.0); MEAN CORPUSCULAR HGB CONC 33.6 % (32.0-36.0); PLATELET COUNT 180 TH/MM3 (150-450); RED BLOOD COUNT 4.41 MIL/MM3 (4.50-5.90); RED CELL DISTRIBUTION WIDTH 15.4 % (11.6-17.2); REVIEW FLAG FINAL; WHITE BLOOD COUNT 8.2 TH/MM3 (4.0-11.0)
[2017-04-24 09:24] LABS: APTT (PATIENT) 42.6 SEC (24.3-30.1)
--- NOTE | 2017-04-24 15:39 | HHI.PR ---
Subjective Remarks Family at the bedside. The patient said that the anxiety medicine with a little too high and requested a lower dose. He is ready for surgery tomorrow and wanted to know what time it was going to occur. No acute complaints. Objective Vitals Vital Signs Date Time Temp Pulse Resp B/P Pulse Ox O2 Delivery O2 Flow Rate FiO2 04/24/17 14:00 58 04/24/17 13:00 58 04/24/17 12:00 60 04/24/17 11:15 98.1 62 19 147/75 97 04/24/17 11:00 62 04/24/17 10:00 64 04/24/17 09:00 64 04/24/17 08:00 60 04/24/17 07:47 92 21 04/24/17 07:30 98.2 63 16 153/77 96 04/24/17 07:00 57 04/24/17 06:00 59 04/24/17 05:00 55 04/24/17 04:00 98.0 59 20 133/75 97 04/24/17 04:00 56 04/24/17 03:00 61 04/24/17 02:00 52 04/24/17 01:00 57 04/24/17 00:00 55 04/23/17 23:59 98.4 57 20 140/73 94 04/23/17 23:00 58 04/23/17 22:00 59 04/23/17 22:00 57 04/23/17 21:00 57 04/23/17 20:00 58 04/23/17 20:00 98.5 58 20 132/77 97 04/23/17 19:00 58 04/23/17 18:30 62 04/23/17 17:00 56 04/23/17 16:00 56 04/23/17 15:45 97.9 59 16 129/65 94 I/O 04/23/17 04/23/17 04/23/17 04/24/17 04/24/17 04/24/17 06:59 14:59 22:59 06:59 14:59 22:59 Intake Total 480 ml 960 ml 588 ml Output Total 1000 ml 750 ml 900 ml Balance -520 ml 210 ml -312 ml Intake Oral 480 ml 960 ml 420 ml IV Total 168 ml Output Urine Total 1000 ml 750 ml 900 ml # Bowel Movements 1 Result Diagram: 04/24/17 0730 04/23/17 1629 Imaging Last Impressions Lower Extremity Ultrasound 04/22/17 0000 Signed Impressions: Service Date/Time: Saturday, April 22, 2017 12:19 - CONCLUSION: Venous mapping as described above. Nikolay Kelly MD FACR Carotid Artery Ultrasound 04/21/17 0000 Signed Impressions: Service Date/Time: April 17:04 - CONCLUSION: 1. No hemodynamically significant flow limiting stenosis in the carotid arteries. 2. Antegrade vertebral artery flow bilaterally. Eliud Jauregui MD Chest X-Ray 04/20/17 1324 Signed Impressions: Service Date/Time: Thursday, April 20, 2017 13:30 - CONCLUSION: 1. No acute cardiopulmonary disease. Eliud Jauregui MD Objective Remarks GENERAL: Appears comfortable. SKIN: Warm and dry. HEAD: Normocephalic. EYES: No scleral icterus. No injection or drainage. NECK: Supple, trachea midline. No JVD. CARDIOVASCULAR: Regular rate and rhythm without murmurs, gallops, or rubs. RESPIRATORY: Breath sounds equal bilaterally. No accessory muscle use. GASTROINTESTINAL: Abdomen soft, non-tender, nondistended. MUSCULOSKELETAL: No cyanosis, or edema. BACK: Nontender without obvious deformity. No CVA tenderness. NEURO: Alert and oriented x 3. PSYCH: Mood and affect appropriate. Medications and IVs Current Medications Medications (Trade) Dose Ordered Sig/Aleta Route Start Time Stop Time Status Last Admin (NS Flush) 2 ml UNSCH PRN IVF 04/20/17 13:30 (NS Flush) 2 ml BID IV FLUSH 04/20/17 21:00 04/24/17 09:03 (Tylenol) 500 mg Q4H PRN PO 04/20/17 15:15 (Zofran Inj) 4 mg Q6H PRN IV 04/20/17 15:15 (Nitrostat Sl) 0.4 mg Q5M PRN SL 04/20/17 15:15 (Aspirin) 325 mg DAILY PO 04/21/17 09:00 04/24/17 09:01 (Lipitor) 80 mg HS PO 04/20/17 21:00 04/23/17 20:32 (Synthroid) 50 mcg DAILY@06 PO 04/21/17 06:00 04/24/17 05:45 (Flomax) 0.4 mg HS PO 04/20/17 21:00 04/23/17 20:32 (Prinivil) 10 mg DAILY PO 04/21/17 09:00 Hold 04/21/17 07:49 (Nitroglycerin 2% Oint) 0.5 inch Q6HR TOPICAL 04/21/17 19:00 04/24/17 12:28 (Lopressor) 12.5 mg Q12HR PO 04/20/17 21:00 04/24/17 09:01 (Microzide) 12.5 mg DAILY PO 04/21/17 09:00 Hold 04/21/17 07:49 (Pill Splitter) 1 ea UNSCH PRN OTHER 04/20/17 19:00 (Atropine Inj) 0.5 mg UNSCH PRN IV 04/21/17 14:15 (Zofran Inj) 4 mg Q4H PRN IV 04/21/17 14:15 (Nitrostat Sl) 0.4 mg Q5M PRN SL 04/21/17 14:15 (Morphine Inj) 2 mg Q30M PRN IV 04/21/17 14:15 (Heparin Inj) 5,000 units UNSCH PRN IV 04/21/17 20:15 Heparin Sodium (Porcine) 2500 units 2,500 units UNSCH PRN IV 04/21/17 20:15 04/22/17 22:30 (Heparin-D5W Inj) 250 ml @ 0 mls/hr TITRATE IV 04/21/17 14:15 04/23/17 23:55 (Xanax) 0.25 mg Q6H PRN PO 04/23/17 10:15 04/23/17 16:12 (Colace) 100 mg BID PO 04/23/17 10:15 04/23/17 11:44 (Senokot) 17.2 mg DAILY PO 04/24/17 09:00 04/24/17 09:00 A/P Assessment and Plan Chest pain/ CAD The patient had positive ischemic changes during treadmill stress testing with the chest pain center. Troponins and EKGs unremarkable 3. Cardiology consulted, appreciate input. S/p cath which revealed Severe 2 vessel CAD, normal EF. CTS consult appreciated. - Started on aspirin, Nitropaste, and metoprolol. Continue lisinopril and atorvastatin. - Monitor on telemetry. - CABG planned tomorrow per CTS. Hypertension Relatively well controlled. - Continue home lisinopril, tamsulosin, and HCTZ. Continue metoprolol. Hypokalemia S/p repletion. - resolved. DVT prophylaxis: SCDs Discharge Planning Awaiting CABG Fernando Simmons DO Apr 24, 2017 15:39
[2017-04-24] MEDS: HEPARIN-D5W INJ 250 ML IV SCH (17:07)
[2017-04-24] MEDS: ALPRAZolam 0.25 MG TAB PO PRN ×2 (17:08→23:50)
[2017-04-24] MEDS: TAMSULOSIN HCL 0.4 MG CAP PO SCH (20:51)
[2017-04-24] MEDS: ATORVASTATIN 80 MG TAB PO SCH (20:51)
[2017-04-25] VITALS (27 sets, daily range): BP systolic 112–159; BP diastolic 65–81; PULSE 51–80; RESP 12–20; TEMP 97.1–98.7; O2SAT 93–98
[2017-04-25] MEDS ORDERED: SODIUM CHLORID 0.9% 500 ML IV PRN (02:00)
[2017-04-25] MEDS ORDERED: LACTATED RINGER'S 1000 ML IV PRN (02:00)
[2017-04-25] MEDS ORDERED: CHLORHEXIDINE GLUCONATE 2 % 1 PACK (2 CLOTHS) TOPICAL PRN (02:00)
[2017-04-25] MEDS ORDERED: POVIDONE IODINE 5% (ANTISEPSIS KIT) 4 APPLICATIONS EACH NARE PRN (02:00)
[2017-04-25] MEDS ORDERED: INSULIN HUMAN REGULAR 1,000 UNITS/10 ML VIAL SQ PRN (02:00)
[2017-04-25] MEDS ORDERED: METOPROLOL TARTRATE 25 MG TAB PO PRN (02:00)
[2017-04-25] MEDS ORDERED: AMINOCAPROIC ACID INJ 250 MG/ML 20 ML VIAL IV ONE ×2 (05:00→08:02)
[2017-04-25] MEDS ORDERED: CALCIUM CHLORIDE 10% SOLN 1 GRAM/10 ML SYR IV ONE (05:00)
[2017-04-25] MEDS ORDERED: MAGNESIUM SULFATE 1000 MG/2 ML VIAL (PED) IV ONE (05:00)
[2017-04-25] MEDS ORDERED: VECURONIUM BROMIDE 10 MG VIAL IV ONE (05:00)
[2017-04-25] MEDS ORDERED: ARTIFICIAL TEARS OPTH OINT 3.5 APPLIC/3.5 GM TUBO ONE (05:00)
[2017-04-25] MEDS ORDERED: PROTAMINE SULFATE 250 MG/25 ML VIAL IV ONE (05:00)
[2017-04-25] MEDS ORDERED: VERAPAMIL HCL 5 MG/2 ML VIAL IV PUSH ONE (05:00)
[2017-04-25] MEDS ORDERED: HEPARIN SODIUM - SQ 10,000 UNITS/ML VIAL SQ ONE (05:00)
[2017-04-25] MEDS ORDERED: GLYCOPYRROLATE 0.2 MG/ML VIAL IV ONE (05:00)
[2017-04-25] MEDS: LEVOTHYROXINE SODIUM 50 MCG TAB PO SCH (05:47)
[2017-04-25] MEDS: NITROGLYCERIN 2% OINT 1 GM PACKET TOPICAL SCH ×3 (05:49→18:00)
[2017-04-25] MEDS ORDERED: LIDOCAINE HCL 2% 100 MG/5 ML SYRINGE IV PUSH ONE (08:04)
[2017-04-25] MEDS ORDERED: LACTATED RINGER'S 1000 ML INJ 1,000 ML IV ONE (08:05)
[2017-04-25] MEDS ORDERED: ONDANSETRON HCL 4 MG/2 ML VIAL IV PUSH ONE (08:05)
[2017-04-25] MEDS ORDERED: VECURONIUM BROMIDE 20 MG VIAL IV ONE (08:05)
[2017-04-25] MEDS ORDERED: SODIUM CHLOR 0.9% 250 ML INJ 250 ML IV ONE (08:06)
[2017-04-25] MEDS ORDERED: SODIUM CHLORIDE 0.9% INJ 200 ML IV ONE (08:06)
[2017-04-25] MEDS ORDERED: SODIUM CHLORID 0.9% 500 ML INJ 500 ML IV ONE (08:06)
[2017-04-25] MEDS ORDERED: NORMOSOL R INJ 2,000 ML IV ONE (08:07)
[2017-04-25] MEDS: SENNOSIDES 8.6 MG TAB PO SCH (08:34)
[2017-04-25] MEDS: ASPIRIN 325 MG TAB PO SCH (08:34)
[2017-04-25] MEDS: METOPROLOL TARTRATE 25 MG TAB PO SCH (08:34)
[2017-04-25] MEDS: DOCUSATE SODIUM 100 MG CAP PO SCH ×2 (08:34→21:00)
[2017-04-25] MEDS: SODIUM CHLORIDE 0.9% FLUSH 10 ML FLUSH IV FLUSH SCH ×3 (08:34→21:00)
[2017-04-25] MEDS: ALPRAZolam 0.25 MG TAB PO PRN (08:35)
[2017-04-25] MEDS ORDERED: VANCOMYCIN HCL 1000 MG VIAL ONE (08:48)
[2017-04-25] MEDS ORDERED: HEPARIN SODIUM - SQ 10,000 UNITS/ML VIAL ONE ×2 (08:48→11:09)
[2017-04-25] MEDS ORDERED: ceFAZolin 2 GM PREMIX 50 ML ONE (08:48)
[2017-04-25] MEDS ORDERED: methylPREDNISolone SOD SUCC 125 MG/2 ML VIAL ONE (08:48)
--- NOTE | 2017-04-25 11:18 | HHI.FF ---
Face to Face Verification Diagnosis: (1) Chest pain (2) Coronary artery disease (3) Hyperlipemia (4) Hypertension (5) S/P CABG (coronary artery bypass graft) Physical Therapy Order: Evaluate and Treat Home Health Nursing Order: Signs/symptoms of disease process Medication education-adverse effect Wound care and dressing changes Nursing assessment with vital signs Instructions: Heart and Vascular Surgery patients *Special attention to sternal dressing Mandatory frequency Assess and evaluation, 4 days in a row The next week 3X week 2 times a week for 4 weeks 1 time a week for 5 weeks Schedule Heart and Vascular patients for full 60 day certification period Initial visit Review Open Heart Surgery Discharge Instructions (Sternal precautions, Activity, Elastic hose, Incision care, Driving, Incentive spirometry, Smoking, [place], Work and other) Need Betadine to paint incision Medication reconciliation Importance of follow up care/ check on appointments Make calendar record temperature daily When to call [facility] nurse, review instructions, phone list Incentive Spirometry, demonstration Visit 1- Begin discharge instruction for patient family and/ or caregiver using teach back method- Signs and symptoms of infection Disease characteristics Medicines and side effects Foods and nutrition/ appetite Infection control/ hand washing/ hygiene Visit 2- Continue teaching Discharge instructions- include additional information on smoking cessation , sternal dressing (sternal vac) Visit 3- Continue teaching- Cough and deep breathing, incision monitoring. Choose my plate Visit 4- Continue teaching- Discuss limitations Discuss how they are feeling Discuss progress toward goals Remaining visits- continue teaching and monitoring PREVENA Single Use Negative Wound Therapy System Caregiver Instruction Sheet 1. A Prevena dressing system was applied to the chest incision during surgery , to promote wound healing. It works via a suction device (negative pressure wound therapy) to remove low to moderate levels of exudate (drainage) and infectious materials. We recommend that the device stay in place for up to seven days, from day of surgery. 2. Day of Surgery__04/25/14 Day of Removal 05/02/17____ 3. The dressing should only be removed by a health critical care rn. Please arrange removal of device to coincide with Home Health visit and or with Nursing staff at Rehab 4. If skin reddening or irritation of skin occurs, or excessive drainage, please notify the Cardiovascular Surgeons office at [phone]. 5. Light showering is permissible; however the pump should be disconnected and placed in safe location, where it will not get wet. The dressing should not be exposed to direct spray or submerged in water. No bath tub / shower only. Ensure the end of the tubing attached to the dressing is facing down so that water does not enter the top of the tube. 6. To remove Prevena dressing: press purple button to turn off device / remove the suction. Then disconnect the tubing from the pump. The fixation strips should be stretched away from the skin and the dressing lifted at one corner and peeled back until it has been fully removed. 7. After removal, it is ok to shower daily using liquid dial soap and clean wash cloth, rinse and pat dry, and leave incision open to air dry. For any concerns regarding Prevena dressing, and or wounds, please contact Anastacia Russell, patient navigator at [phone] or notify the Cardiovascular Surgeons office at [phone]. Incentive spirometry Q1 hr x 10, while awake, also use acapella device hourly whole awake Sternal Breast Bone Precautions: NO pushing or pulling, ( pt must use sternal pillow to support chest with all activities and with coughing ( takes up to 3 months breast bone to heal ) Daily incision care: ok to shower daily, no tub bath. Wash all incisions with liquid dial soap, clean wash cloth to each site, rinse and pat dry. Observe for any signs of infection, such as drainage which is dark yellow, smith, green or foul smelling. Immediately report to the surgeon any drainage from the chest incision, or legs, and for any abnormal drainage from the chest tube sites. Notify surgeon if any temp >101.5 degrees F. When specialty dressing removed/ or if you do not have one, continue to shower daily as above, then rinse and pat incision dry and paint with betadine daily x 5 days. Allow steri strips to fall off if you have any. Avoid lotions, creams, salves, oils, etc. for the first month Please see attached forms for additional instructions regarding post Open Heart specialty wound vacuum dressings. [place] or Prevena , Dressing to be removed by Nursing staff on __// F/U appointment: as per DC instructions: PCP in 2 weeks, CV surgeon 2 weeks, Wood Web Weaving Machine Operator 3-4 weeks For any questions regarding incisions/ dressing / meds / post op care or above Symptoms, Tuesday 8am-5pm Heart & Vascular Surgery Office ( Dr. Foster & Dr. Junior), After Hours / Nights (5pm -8am) Weekends and Holidays Please call [facility] Cardiac [facility] Care Unit (CIC) Charge Nurse I have seen patient Vaughn Cantrell on 04/25/17. My clinical findings support the need for the requested home health care services because: Deconditioned w/ increased weakness I certify that my clinical findings support that this patient is homebound because: Post-op weakness Pauline Rodriguez Apr 25, 2017 11:18
[2017-04-25] MEDS ORDERED: LACTATED RINGER'S 1000 ML INJ 500 ML IV PRN (15:02)
[2017-04-25] MEDS: DOBUTamine PREMIX DRIP 250 ML IV SCH (15:02)
--- NOTE | 2017-04-25 15:11 | PD.OP ---
cc: Vidal Pate MD; Giovani Foster MD Operative Report Date of Surgery: Apr 25, 2017 Preoperative Diagnosis: Postoperative Diagnosis: Procedure: 1. Urgent Off-pump Coronary Artery Bypass Grafting x 3 with Left Internal Mammary Artery (CHACON) to Left Anterior Descending (LAD), reverse saphenous vein graft to Diagonal 1, reverse saphenous vein graft to the Obtuse Marginal 1 branch of the Circumflex artery 2. Left Leg Endoscopic Vein [place] 3. Intraoperative Vein Mapping. Surgeon: Giovani Foster [employer]obbies [employer] Craft[employer] Sales Representative(s): Teja Strauss Operation and Findings: PREPROCEDURE DIAGNOSES 1. Severe Two Vessel Coronary Artery Disease. 2. Unstable Angina POSTPROCEDURE DIAGNOSES Same SURGICAL PROCEDURE 1. Urgent Off-pump Coronary Artery Bypass Grafting x 3 with Left Internal Mammary Artery (CHACON) to Left Anterior Descending (LAD), reverse saphenous vein graft to Diagonal 1, reverse saphenous vein graft to the Obtuse Marginal 1 branch of the Circumflex artery 2. Left Leg Endoscopic Vein [place] 3. Intraoperative Vein Mapping. SURGEON Giovani Foster MD DATA OPERATIONS MANAGER Kurtis Strauss, [place] NENA Quiros ANESTHESIA General endotracheal METAL CONTROL COORDINATOR Helene Marvin, IRON Gambino MD PREPARATION ChloraPrep. COUNTS Needle, sponge, and instrument counts were correct. DRAINS Two 32-Kazakh mediastinal tubes. COMPLICATIONS None. INDICATIONS FOR PROCEDURE The patient is a 66-year-old presenting with chest pain. Patient was noted to have two-vessel coronary artery disease. The patient is being brought to the operating room for surgical revascularization therapy. PROCEDURE Patient was brought to the operating room and placed supine on the OR table. Following the induction of adequate general endotracheal anesthesia and placement of appropriate monitoring devices, intraoperative vein mapping was performed which revealed suitable-caliber conduit in bilateral lower extremities. The patient was then prepped and draped in standard sterile fashion. Next, 2500 units of intravenous heparin was given. The left greater saphenous vein was harvested endoscopically. This appeared to be a good-caliber conduit. Simultaneously, a median sternotomy was performed and the left internal mammary artery dissected free off the posterior sternal table. The patient was systemically heparinized and anticoagulation monitored by serial ACT measurements. The internal mammary artery had excellent pulsatile flow in it and was a good-caliber conduit. The pericardium was then divided in the midline, the cradle created and targets analyzed. At this point, all anastomoses were performed in a beating-heart fashion using the Maquet stabilizing system. The left internal mammary artery was anastomosed to the mid LAD (2 mm) in an end-to-side fashion using 7-0 Prolene. Segment of saphenous vein graft was then anastomosed to the OM1 (2 mm) in an end-to-side fashion using 7-0 Prolene. The final segment was anastomosed to the D1 (1.75 mm) in an end-to-side fashion using a running 7-0 Prolene. The proximal anastomoses were then constructed to the ascending aorta in a running manner using 6-0 Prolene. All anastomotic sites were inspected and appeared to be hemostatic and patent. Protamine solution was given. Strict hemostasis was assured. The closure was undertaken. 2 chest tubes were placed. The pericardium was reapproximated in the midline. The sternum was approximated using sternal wires. The muscular and fascial layer were then closed in 3 layers. The endoscopic vein harvest site was closed in 2 layers. The patient tolerated the procedure well and was transferred to CVICU in stable condition. Giovani Foster MD Apr 25, 2017 15:11
[2017-04-25] MEDS ORDERED: RESP: ALBUTEROL 2.5 MG/IPRATROPIUM 0.5 MG NEB (PRN) NEB (15:15)
[2017-04-25] MEDS ORDERED: EPINEPHrine (1:1000) INJ 4 MG in DEXTROSE 5% IN WATER INJ 246 ML IV SCH ×2 (15:15)
[2017-04-25] MEDS ORDERED: METOPROLOL TARTRATE 5 MG/5 ML VIAL IV PUSH PRN (15:15)
[2017-04-25] MEDS ORDERED: MAGNESIUM SULFATE INJ 2 GM in SODIUM CHLORIDE 0.9% INJ 100 ML IV PRN ×4 (15:15)
[2017-04-25] MEDS ORDERED: POTASSIUM CHLOR 20 MEQ PREMIX 100 ML IV PRN ×2 (15:15)
[2017-04-25] MEDS ORDERED: INSULIN REGULAR (IV INFUSION) 100 UNITS in SODIUM CHLORIDE 0.9% INJ 99 ML IV SCH (15:15)
[2017-04-25] MEDS ORDERED: DEXTROSE 50% IN WATER 50 ML VIAL(D50) IV PUSH PRN (15:15)
[2017-04-25] MEDS ORDERED: MEPERIDINE HCL 25 MG/ML VIAL IV PRN (15:15)
[2017-04-25] MEDS ORDERED: CALCIUM CHLORIDE INJ 1 GM in SODIUM CHLORIDE 0.9% INJ 100 ML IV PRN (15:15)
[2017-04-25] MEDS ORDERED: Post-op Orders (for Pharmacy) MISC OTHER ONE (15:15)
[2017-04-25] MEDS ORDERED: ACETAMINOPHEN 325 MG TAB PO PRN (15:15)
[2017-04-25] MEDS ORDERED: KETOROLAC TROMETHAMINE 30 MG/ML (IVP) VIAL IV PUSH PRN (15:15)
[2017-04-25] MEDS ORDERED: SODIUM CHLORIDE 0.9% FLUSH 10 ML FLUSH IV FLUSH PRN (15:15)
[2017-04-25] MEDS ORDERED: ACETAMINOPHEN 650 MG SUPP RECTAL PRN (15:15)
[2017-04-25] MEDS ORDERED: RESP: RACEPINEPHRINE 2.25% 0.5 ML NEB NEB PRN (15:15)
[2017-04-25] MEDS ORDERED: ALBUMIN HUMAN 5% 12.5 GM/250 ML BOTTLE IV PRN (15:15)
[2017-04-25] MEDS ORDERED: MORPHINE SULFATE 4 MG/ML INJ IV PRN (15:15)
[2017-04-25] MEDS ORDERED: PHENYLEPHRINE INJ 40 MG in DEXTROSE 5% IN WATE 500 ML INJ 496 ML IV SCH ×2 (15:15)
[2017-04-25] MEDS ORDERED: NITROGLYCERIN-DEXTROSE INJ 250 ML IV SCH (15:15)
[2017-04-25] MEDS ORDERED: POTASSIUM CHLORIDE 20 MEQ CONTROLLED RELEASE TAB PO PRN ×2 (15:15)
[2017-04-25] MEDS ORDERED: hydrALAZINE HCL 20 MG/ML VIAL IV PRN (15:15)
[2017-04-25] MEDS ORDERED: DOPamine INJ PREMIX 500 ML IV SCH (15:15)
[2017-04-25] MEDS ORDERED: CALCIUM CHLORIDE 10% 1 GRAM/10 ML VIAL IV PRN (15:15)
[2017-04-25] MEDS ORDERED: ceFAZolin INJ 1,000 MG VIAL IV ONE (15:18)
[2017-04-25] MEDS ORDERED: MIDAZOLAM HCL 5 MG/5 ML VIAL ONE (15:55)
[2017-04-25] MEDS ORDERED: fentaNYL CITRATE 1000 MCG/20 ML VIAL ONE (15:55)
--- NOTE | 2017-04-25 16:08 | HHI.PR ---
Subjective Remarks The patient was seen in CVICU following CABG. He was agitated and pulling at things, trying to sit up. He was about to have a chest x-ray done. Objective Vitals Vital Signs Date Time Temp Pulse Resp B/P Pulse Ox O2 Delivery O2 Flow Rate FiO2 04/25/17 10:27 97 21 04/25/17 10:17 51 04/25/17 09:00 52 04/25/17 08:45 53 04/25/17 08:45 98.0 58 16 151/81 98 04/25/17 06:00 53 04/25/17 05:00 53 04/25/17 04:00 53 04/25/17 03:00 54 04/25/17 02:00 52 04/25/17 01:00 53 04/25/17 00:00 52 04/25/17 00:00 98.4 55 20 138/74 98 04/24/17 23:00 58 04/24/17 22:00 57 04/24/17 21:56 21 04/24/17 21:00 58 04/24/17 20:00 98.6 53 22 132/69 98 04/24/17 20:00 56 04/24/17 19:00 53 04/24/17 18:01 52 04/24/17 17:00 56 I/O 04/24/17 04/24/17 04/24/17 04/25/17 04/25/17 04/25/17 07:00 15:00 23:00 07:00 15:00 23:00 Intake Total 588 ml 900 ml 585 ml Output Total 900 ml 750 ml 700 ml Balance -312 ml 150 ml -115 ml Intake Oral 420 ml 720 ml 420 ml IV Total 168 ml 180 ml 165 ml Output Urine Total 900 ml 750 ml 700 ml # Bowel Movements 1 Result Diagram: 04/24/17 0730 04/23/17 1629 Imaging Last Impressions Lower Extremity Ultrasound 04/22/17 0000 Signed Impressions: Service Date/Time: Saturday, April 22, 2017 12:19 - CONCLUSION: Venous mapping as described above. Nikolay Kelly MD FACR Carotid Artery Ultrasound 04/21/17 0000 Signed Impressions: Service Date/Time: April 17:04 - CONCLUSION: 1. No hemodynamically significant flow limiting stenosis in the carotid arteries. 2. Antegrade vertebral artery flow bilaterally. Eliud Jauregui MD Chest X-Ray 04/20/17 1324 Signed Impressions: Service Date/Time: Thursday, April 20, 2017 13:30 - CONCLUSION: 1. No acute cardiopulmonary disease. Eliud Jauregui MD Objective Remarks GENERAL: Agitated. SKIN: Warm and dry. Incision along midsternum, wound VAC in place. HEAD: Normocephalic. EYES: No scleral icterus. No injection or drainage. NECK: Supple, trachea midline. No JVD. CARDIOVASCULAR: Tachycardic. RESPIRATORY: Currently intubated. GASTROINTESTINAL: Abdomen soft, non-tender, nondistended. MUSCULOSKELETAL: No cyanosis, or edema. BACK: Nontender without obvious deformity. No CVA tenderness. NEURO: Disoriented. PSYCH: Anxious. Procedures CABG Medications and IVs Current Medications Medications (Trade) Dose Ordered Sig/Aleta Route Start Time Stop Time Status Last Admin (NS Flush) 2 ml UNSCH PRN IVF 04/20/17 13:30 (NS Flush) 2 ml BID IV FLUSH 04/20/17 21:00 04/24/17 21:00 (Tylenol) 500 mg Q4H PRN PO 04/20/17 15:15 (Zofran Inj) 4 mg Q6H PRN IV 04/20/17 15:15 (Nitrostat Sl) 0.4 mg Q5M PRN SL 04/20/17 15:15 (Aspirin) 325 mg DAILY PO 04/21/17 09:00 04/25/17 08:34 (Lipitor) 80 mg HS PO 04/20/17 21:00 04/24/17 20:51 (Synthroid) 50 mcg DAILY@06 PO 04/21/17 06:00 04/25/17 05:47 (Flomax) 0.4 mg HS PO 04/20/17 21:00 04/24/17 20:51 (Prinivil) 10 mg DAILY PO 04/21/17 09:00 Hold 04/21/17 07:49 (Nitroglycerin 2% Oint) 0.5 inch Q6HR TOPICAL 04/21/17 19:00 04/25/17 05:49 (Lopressor) 12.5 mg Q12HR PO 04/20/17 21:00 04/25/17 08:34 (Microzide) 12.5 mg DAILY PO 04/21/17 09:00 Hold 04/21/17 07:49 (Pill Splitter) 1 ea UNSCH PRN OTHER 04/20/17 19:00 (Atropine Inj) 0.5 mg UNSCH PRN IV 04/21/17 14:15 (Zofran Inj) 4 mg Q4H PRN IV 04/21/17 14:15 (Nitrostat Sl) 0.4 mg Q5M PRN SL 04/21/17 14:15 (Morphine Inj) 2 mg Q30M PRN IV 04/21/17 14:15 (Heparin Inj) 5,000 units UNSCH PRN IV 04/21/17 20:15 Heparin Sodium (Porcine) 2500 units 2,500 units UNSCH PRN IV 04/21/17 20:15 04/22/17 22:30 (Heparin-D5W Inj) 250 ml @ 0 mls/hr TITRATE IV 04/21/17 14:15 04/24/17 17:07 (Colace) 100 mg BID PO 04/23/17 10:15 04/23/17 11:44 (Senokot) 17.2 mg DAILY PO 04/24/17 09:00 04/24/17 09:00 Alprazolam 0.125 mg 0.125 mg Q6H PRN PO 04/24/17 16:15 04/25/17 08:35 Lactated Ringer's 1,000 ml @ 30 mls/hr Q24H PRN IV 04/25/17 02:00 04/28/17 01:59 (NS 500 ml Inj) 500 ml @ 30 mls/hr [id number] PRN IV 04/25/17 02:00 04/28/17 01:59 (NS Flush) 2 ml BID IV FLUSH 04/25/17 21:00 Sodium Chloride 2 ml 2 ml UNSCH PRN IV FLUSH 04/25/17 15:15 Dexmedetomidine HCl 200 mcg/ Sodium Chloride 52 ml @ 0 mls/hr TITRATE IV 04/25/17 15:15 Nitroglycerin/ Dextrose 250 ml @ 0 mls/hr TITRATE IV 04/25/17 15:15 Dobutamine HCl/ Dextrose 250 ml @ 14.4 mls/hr [id number] IV 04/25/17 15:02 Dopamine HCl/ Dextrose 500 ml @ 0 mls/hr TITRATE IV 04/25/17 15:15 Epinephrine HCl 4 mg/Dextrose 250 ml @ 0 mls/hr TITRATE IV 04/25/17 15:15 Phenylephrine HCl 40 mg/Dextrose 500 ml @ 0 mls/hr TITRATE IV 04/25/17 15:15 (Cleviprex Inj) 50 ml @ 0 mls/hr TITRATE IV 04/25/17 15:15 Albumin Human 12.5 gm 12.5 gm UNSCH PRN IV 04/25/17 15:15 (Lr 1000 ml Inj) 500 ml @ 500 mls/hr Q1H PRN IV 04/25/17 15:02 (Aspirin Chew) 81 mg DAILY PO 04/26/17 09:00 (Plavix) 75 mg DAILY PO 04/26/17 09:00 (Protonix) 40 mg DAILY@06 PO 04/26/17 06:00 (Cordarone) 200 mg Q12HR PO 04/25/17 21:00 UNV (Tylenol) 650 mg Q4H PRN PO 04/25/17 15:15 (Tylenol Supp) 650 mg Q4H PRN RECTAL 04/25/17 15:15 (Ofirmev Inj) 1,000 mg Q6H IV 04/25/17 15:15 04/26/17 09:16 UNV (Morphine Inj) 1 mg Q10M PRN IV 04/25/17 15:15 UNV (Demerol Inj) 12.5 mg Q4H PRN IV 04/25/17 15:15 (Percocet 5-325 Mg) 1 tab Q3H PRN PO 04/25/17 15:15 UNV (Toradol Inj) 15 mg Q6H PRN IV PUSH 04/25/17 15:15 04/27/17 15:14 UNV (fentaNYL INJ) 25 mcg Q1H PRN IV 04/25/17 15:15 (Zofran Inj) 4 mg Q6H PRN IV PUSH 04/25/17 15:15 (Apresoline Inj) 10 mg Q4H PRN IV 04/25/17 15:15 Metoprolol Tartrate 2.5 mg 2.5 mg Q1H PRN IV PUSH 04/25/17 15:15 UNV Potassium Chloride 100 ml @ 50 mls/hr UNSCH PRN IV 04/25/17 15:15 UNV Potassium Chloride 100 ml @ 50 mls/hr UNSCH PRN IV 04/25/17 15:15 UNV (KCl 20 Meq Premix Inj) 100 ml @ 50 mls/hr UNSCH PRN IV 04/25/17 15:15 UNV (KCl) 20 meq UNSCH PRN PO 04/25/17 15:15 04/25/17 15:16 UNV Potassium Chloride 40 meq 40 meq UNSCH PRN PO 04/25/17 15:15 04/25/17 15:16 UNV Magnesium Sulfate 2 gm/Sodium Chloride 104 ml @ 100 mls/hr UNSCH PRN IV 04/25/17 15:15 UNV Magnesium Sulfate 2 gm/Sodium Chloride 104 ml @ 50 mls/hr UNSCH PRN IV 04/25/17 15:15 UNV (Calcium Chloride Inj/NS Inj) 110 ml @ 100 mls/hr UNSCH PRN IV 04/25/17 15:15 Calcium Chloride 0.5 gm 0.5 gm UNSCH PRN IV 04/25/17 15:15 (NovoLIN R (IV INFUSION)/NS Inj) 100 ml @ 0 mls/hr TITRATE IV 04/25/17 15:15 UNV Dextrose 50 ml 50 ml UNSCH PRN IV PUSH 04/25/17 15:15 (Ancef 2 Gm Premix) 50 ml @ 100 mls/hr Q8H IV 04/25/17 15:15 04/26/17 23:44 UNV A/P Assessment and Plan Chest pain/ CAD The patient had positive ischemic changes during treadmill stress testing with the chest pain center. Troponins and EKGs unremarkable 3. Cardiology consulted, appreciate input. S/p cath which revealed Severe 2 vessel CAD, normal EF. CTS consult appreciated. Status post CABG 04/25/17. - Started on aspirin, Nitropaste, and metoprolol. Continue lisinopril and atorvastatin. - Monitor on telemetry. - Management per CTS. Keep patient in the CVICU for now. - rehab efforts. Hypertension Relatively well controlled. - Continue home lisinopril, tamsulosin, and HCTZ. Continue metoprolol. Hypokalemia S/p repletion. - resolved. DVT prophylaxis: SCDs Discharge Planning Per CTS Fernando Simmons DO Apr 25, 2017 16:08
[2017-04-25] MEDS: POTASSIUM CHLOR 20 MEQ PREMIX 100 ML IV PRN (16:36)
[2017-04-25] MEDS: CLEVIDIPINE INJ 50 ML IV SCH ×2 (16:37→23:38)
[2017-04-25] MEDS: DEXMEDETOMIDINE INJ 200 MCG in SODIUM CHLORIDE 0.9% INJ 50 ML IV SCH ×2 (16:40→18:44)
--- NOTE | 2017-04-25 16:42 | RADRPT ---
EXAM DATE/TIME: 04/25/2017 15:43 [facility] COMPARISON: CHEST SINGLE AP, April 20, 2017, 13:30. INDICATIONS : S/p cabg. MEDICAL HISTORY : Hypertension. Hypercholesterolemia. Hypertension. coronary artery disease SURGICAL HISTORY : None. ENCOUNTER: Initial ACUITY: 1 day PAIN SCORE: Non-responsive. LOCATION: Bilateral chest FINDINGS: Endotracheal tube is present with tip 4 cm above the melanie. An esophageal tube is present which does not appear to make it to the stomach. Thoracostomy tubes are present midline and left. Right neck sh eath and central catheter are present in good position. There is mild bilateral basilar atelectasis. Slight central vascular congestion. Cardiac contours are otherwise grossly satisfactory. Sternotomy w ires are present. CONCLUSION: Satisfactory postoperative appearance. Kurtis Hernandez MD on April 25, 2017 at 16:36 Board Certified Radiologist. This report was verified electronically.
[2017-04-25] MEDS: ACETAMINOPHEN 1000 MG/100 ML VIAL IV SCH (17:48)
[2017-04-25] MEDS: RESP: ALBUTEROL 2.5 MG/IPRATROPIUM 0.5 MG NEB (SCH) NEB (20:33)
[2017-04-26] VITALS (18 sets, daily range): BP systolic 104–144; BP diastolic 58–77; PULSE 68–84; RESP 16–20; TEMP 98.3–99.6; O2SAT 92–98
[2017-04-26] MEDS: POTASSIUM CHLOR 20 MEQ PREMIX 100 ML IV PRN (00:14)
[2017-04-26] MEDS: AMIODARONE 200 MG TAB PO SCH ×3 (00:14→22:13)
[2017-04-26] MEDS: TAMSULOSIN HCL 0.4 MG CAP PO SCH ×2 (00:14→22:14)
[2017-04-26] MEDS: ATORVASTATIN 80 MG TAB PO SCH ×2 (00:14→22:14)
[2017-04-26] MEDS: METOPROLOL TARTRATE 25 MG TAB PO SCH ×3 (00:16→22:18)
[2017-04-26] MEDS: ceFAZolin 2 GM PREMIX 50 ML IV SCH ×4 (00:16→22:22)
[2017-04-26] MEDS: ACETAMINOPHEN 1000 MG/100 ML VIAL IV SCH ×3 (00:16→11:00)
[2017-04-26] MEDS: RESP: ALBUTEROL 2.5 MG/IPRATROPIUM 0.5 MG NEB (SCH) NEB ×3 (03:28→19:45)
[2017-04-26 05:03] LABS: HEMATOCRIT 38.7 % (39.0-51.0); MEAN CELL VOLUME 89.1 FL (80.0-100.0); MEAN CORPUSCULAR HEMOGLOBIN 31.3 PG (27.0-34.0); MEAN CORPUSCULAR HGB CONC 35.1 % (32.0-36.0); PLATELET COUNT 174 TH/MM3 (150-450); RED BLOOD COUNT 4.34 MIL/MM3 (4.50-5.90); RED CELL DISTRIBUTION WIDTH 15.5 % (11.6-17.2); REVIEW FLAG FINAL; WHITE BLOOD COUNT 10.9 TH/MM3 (4.0-11.0)
--- NOTE | 2017-04-26 05:08 | RADRPT ---
EXAM DATE/TIME: 04/26/2017 04:09 [facility] COMPARISON: CHEST SINGLE AP, April 25, 2017, 15:43. INDICATIONS : Post CABG. MEDICAL HISTORY : Hypertension. Hypercholesterolemia. Hypertension. Coronary artery disease. SURGICAL HISTORY : None. ENCOUNTER: Subsequent ACUITY: 2 days PAIN SCORE: Non-responsive. LOCATION: Bilateral chest FINDINGS: There is a left-sided chest tube, mediastinal tube and right jugular line identified. There atelectat ic changes at the left lung base, with improved aeration since previous. Cardiomegaly. CONCLUSION: Improved aeration. Alan Monterroso MD on April 26, 2017 at 5:06 Board Certified Radiologist. This report was verified electronically.
[2017-04-26] MEDS: LEVOTHYROXINE SODIUM 50 MCG TAB PO SCH (05:18)
[2017-04-26] MEDS: PANTOPRAZOLE SOD 40 MG DELAYED RELEASE TAB PO SCH (05:18)
[2017-04-26 05:33] LABS: BICARBONATE 26.2 MEQ/L (21.0-32.0); MAGNESIUM 2.3 MG/DL (1.5-2.5); POTASSIUM 3.9 MEQ/L (3.5-5.1)
[2017-04-26] MEDS: NITROGLYCERIN 2% OINT 1 GM PACKET TOPICAL SCH ×2 (06:00)
[2017-04-26] MEDS: DOBUTamine PREMIX DRIP 250 ML IV SCH (07:24)
[2017-04-26] MEDS: SENNOSIDES 8.6 MG TAB PO SCH ×2 (09:00→22:12)
[2017-04-26] MEDS: CLOPIDOGREL 75 MG TAB PO SCH (09:04)
[2017-04-26] MEDS: SODIUM CHLORIDE 0.9% FLUSH 10 ML FLUSH IV FLUSH SCH ×3 (09:04→22:13)
[2017-04-26] MEDS: ASPIRIN 81 MG CHEW TAB PO SCH (09:06)
[2017-04-26] MEDS: DOCUSATE SODIUM 100 MG CAP PO SCH ×2 (09:07→22:12)
[2017-04-26] MEDS: oxyCODONE/ACETAMINOPHEN 5 MG/325 MG TAB PO PRN ×5 (09:28→22:11)
[2017-04-26] MEDS ORDERED: GLUCAGON 1 MG/ML VIAL OTHER PRN (09:45)
[2017-04-26] MEDS ORDERED: SOD PHOSPHATE/SOD BIPHOSPHATE (ADULT) ENEMA 133ML RECTAL PRN (09:45)
[2017-04-26] MEDS ORDERED: DEXTROSE 50% IN WATER 50 ML VIAL(D50) IV PRN (09:45)
[2017-04-26] MEDS ORDERED: BISACODYL 10 MG SUPP RECTAL PRN (09:45)
[2017-04-26] MEDS: INSULIN ASPART SUPPLEMENTAL SCALE SQ SCH ×4 (10:53→23:18)
[2017-04-26] MEDS ORDERED: FUROSEMIDE 40 MG/4 ML VIAL ONE (13:11)
[2017-04-26] MEDS ORDERED: FUROSEMIDE 40 MG/4 ML VIAL IV PUSH ONE (14:30)
--- NOTE | 2017-04-26 14:44 | PD.CAR.PN ---
CVT Progress Note CVT: POD #: 1 Subjective/Hospital Course: 66/ male c/o chest pressure on and off x 6 months, presented to ED with chest pain , nonspecific ECG changes , admitted to chest coco clinic. Underwent exercise stress test + changes in anterior leads. pt then underwent cardiac cath by Dr Vidal Hawkins and found to have multi vessel coronary disease 90% prox LAD, 80% mid distal LAD, 90% CX, EF 50% PCP Dr Laura Esquivel [place] PMH: HTN, HLP, hypothyroidism surgery: 04/25/17 1. Urgent Off-pump Coronary Artery Bypass Grafting x 3 with Left Internal Mammary Artery (CHACON) to Left Anterior Descending (LAD), reverse saphenous vein graft to Diagonal 1, reverse saphenous vein graft to the Obtuse Marginal 1 branch of the Circumflex artery pt was somewhat combative immediately after surgery, required morphine , fentanyl, Precedex and weaned later appropriately on Precedex to extubation was also started on cleviprex gtt 2500cc crystalloid, 250cc EBL 04/26/17 pt awake alert , up in chair no further confusion on statin, BB amiodarone , ASA plavix pulm toileting , OOB transfer to stepdown Objective: GENERAL: A&) SKIN: Warm and dry. prevena to chest / dressing in lace left leg HEAD: Normocephalic. EYES: No scleral icterus. No injection or drainage. NECK: Supple, trachea midline. No JVD or lymphadenopathy. CARDIOVASCULAR: Regular rate and rhythm without murmurs, gallops, or rubs. RESPIRATORY: Breath sounds equal bilaterally. No accessory muscle use. chest tube to wall suction, no air leak, drained 150cc/ 12 hrs GASTROINTESTINAL: Abdomen soft, non-tender, nondistended. MUSCULOSKELETAL: No cyanosis, or edema. BACK: Nontender without obvious deformity. No CVA tenderness. Vital Signs Date Time Temp Pulse Resp B/P Pulse Ox O2 Delivery O2 Flow Rate FiO2 04/26/17 11:00 98.3 74 16 111/67 96 Arterial Line 04/26/17 11:00 70 04/26/17 09:48 95 Nasal Cannula 4.00 04/26/17 07:00 70 04/26/17 07:00 98.5 68 16 104/58 98 137/61 04/26/17 06:14 98.6 04/26/17 06:00 72 04/26/17 05:00 72 04/26/17 04:00 70 04/26/17 03:19 98.6 04/26/17 03:00 74 04/26/17 03:00 98.3 73 18 127/70 98 139/68 04/26/17 02:00 69 04/26/17 01:00 84 04/26/17 00:00 84 04/25/17 23:00 71 04/25/17 23:00 98.7 69 16 112/69 95 143/72 04/25/17 22:00 67 04/25/17 21:45 93 Non-Rebreather 15.00 04/25/17 21:45 93 Non-Rebreather 15 04/25/17 21:00 80 04/25/17 20:00 50 04/25/17 20:00 72 04/25/17 20:00 93 50 04/25/17 19:00 98.0 61 12 127/72 96 140/81 04/25/17 19:00 61 04/25/17 18:49 45 04/25/17 18:45 96 60 04/25/17 18:36 12 04/25/17 18:32 98.3 04/25/17 18:26 40 04/25/17 18:09 63 04/25/17 17:14 58 04/25/17 17:10 98 75 04/25/17 16:47 55 04/25/17 16:20 97.5 55 13 159/65 96 156/66 04/25/17 16:10 96 100 04/25/17 15:49 97.1 04/25/17 15:45 80 04/25/17 15:40 98 90 Labs: Laboratory Tests Test 04/26/17 04:35 White Blood Count 10.9 TH/MM3 (4.0-11.0) Red Blood Count 4.34 MIL/MM3 (4.50-5.90) Hemoglobin 13.6 GM/DL (13.0-17.0) Hematocrit 38.7 % (39.0-51.0) Mean Corpuscular Volume 89.1 FL (80.0-100.0) Mean Corpuscular Hemoglobin 31.3 PG (27.0-34.0) Mean Corpuscular Hemoglobin 35.1 % Concent (32.0-36.0) Red Cell Distribution Width 15.5 % (11.6-17.2) Platelet Count 174 TH/MM3 (150-450) Mean Platelet Volume 7.6 FL (7.0-11.0) Sodium Level 135 MEQ/L (136-145) Potassium Level 3.9 MEQ/L (3.5-5.1) Chloride Level 102 MEQ/L (98-107) Carbon Dioxide Level 26.2 MEQ/L (21.0-32.0) Anion Gap 7 MEQ/L (5-15) Blood Urea Nitrogen 10 MG/DL (7-18) Creatinine 0.64 MG/DL (0.60-1.30) Estimat Glomerular Filtration 124 ML/MIN Rate (>89) Random Glucose 109 MG/DL (74-106) Calcium Level 8.1 MG/DL (8.5-10.1) Magnesium Level 2.3 MG/DL (1.5-2.5) Result Diagram: 04/26/1743404/26/17434 (1) Chest pain Plan: Severe 2 vessel CAD Preserved EF Awaiting CABG (Tuesday) Recommendations: 1. Cont Heparin drip 2. Aggressive medical management for CAD (2) S/P CABG (coronary artery bypass graft) Plan: statin , add BB in am ( HR 50-60) ASA, plavix pulm toileting nebs, ezpap acapella (3) Coronary artery disease (4) Hyperlipemia Plan: on statin (5) Hypertension Plan: controlled Pauline Rodriguez Apr 26, 2017 14:44
--- NOTE | 2017-04-26 15:03 | EKG ---
Date Performed: 04/26/2017 Time Performed: 06:01:20 PTAGE: 66 years EKG: CONSIDER ACUTE ST ELEVATION PR Sinus rhythm Lateral ST elevation, CONSIDER ACUTE INFARCT Abnormal ECG PREVIOUS TRACING : 04/20/2017 22.12 DOCTOR: Dl Ramirez Interpretating Date/Time 04/26/2017 14:57:44
[2017-04-27] VITALS (29 sets, daily range): BP systolic 122–149; BP diastolic 68–89; PULSE 73–93; RESP 18–20; TEMP 98.2–100.8; O2SAT 87–98
[2017-04-27] MEDS: INSULIN ASPART SUPPLEMENTAL SCALE SQ SCH ×6 (02:00→21:00)
[2017-04-27] MEDS: oxyCODONE/ACETAMINOPHEN 5 MG/325 MG TAB PO PRN ×4 (02:41→16:28)
[2017-04-27] MEDS: LEVOTHYROXINE SODIUM 50 MCG TAB PO SCH (05:42)
[2017-04-27] MEDS: ceFAZolin 2 GM PREMIX 50 ML IV SCH (05:42)
[2017-04-27] MEDS: PANTOPRAZOLE SOD 40 MG DELAYED RELEASE TAB PO SCH (05:42)
[2017-04-27 06:13] LABS: AUTOMATED NEUTROPHIL # 9.8 TH/MM3 (1.8-7.7); BASOPHIL # 0.1 TH/MM3 (0-0.2); BASOPHIL % 0.8 % (0.0-2.0); EOSINOPHIL % 0.3 % (0.0-4.0); HEMATOCRIT 36.8 % (39.0-51.0); HEMO FLAGS DIFF FINAL; LYMPH % 11.3 % (9.0-44.0); LYMPHOCYTE # 1.4 TH/MM3 (1.0-4.8); MEAN CELL VOLUME 89.2 FL (80.0-100.0); MEAN CORPUSCULAR HEMOGLOBIN 30.8 PG (27.0-34.0); MEAN CORPUSCULAR HGB CONC 34.5 % (32.0-36.0); NEUT % 76.6 % (16.0-70.0); PLATELET COUNT 168 TH/MM3 (150-450); RED BLOOD COUNT 4.13 MIL/MM3 (4.50-5.90); RED CELL DISTRIBUTION WIDTH 15.6 % (11.6-17.2); WHITE BLOOD COUNT 12.7 TH/MM3 (4.0-11.0)
[2017-04-27 06:37] LABS: BICARBONATE 28.1 MEQ/L (21.0-32.0); MAGNESIUM 2.5 MG/DL (1.5-2.5); POTASSIUM 3.8 MEQ/L (3.5-5.1)
[2017-04-27] MEDS: RESP: ALBUTEROL 2.5 MG/IPRATROPIUM 0.5 MG NEB (SCH) NEB ×3 (08:00→20:07)
[2017-04-27] MEDS: SODIUM CHLORIDE 0.9% FLUSH 10 ML FLUSH IV FLUSH SCH ×2 (09:00→20:59)
[2017-04-27] MEDS: CLOPIDOGREL 75 MG TAB PO SCH (09:32)
[2017-04-27] MEDS: POLYETHYLENE GLYCOL 17 GM PKG PO SCH (09:32)
[2017-04-27] MEDS: DOCUSATE SODIUM 100 MG CAP PO SCH ×2 (09:32→21:00)
[2017-04-27] MEDS: MAGNESIUM HYDROXIDE SUSP 30 ML CUP PO SCH (09:32)
[2017-04-27] MEDS: AMIODARONE 200 MG TAB PO SCH ×2 (09:33→21:00)
[2017-04-27] MEDS: MULTIVITAMINS/MINERALS THERAPEUTIC TAB PO SCH (09:33)
[2017-04-27] MEDS: ASPIRIN 81 MG CHEW TAB PO SCH (09:33)
[2017-04-27] MEDS: METOPROLOL TARTRATE 25 MG TAB PO SCH ×2 (09:33→20:59)
--- NOTE | 2017-04-27 10:28 | PD.CAR.PN ---
CVT Progress Note CVT: POD #: 2 Subjective/Hospital Course: 66/ male c/o chest pressure on and off x 6 months, presented to ED with chest pain , nonspecific ECG changes , admitted to chest coco clinic. Underwent exercise stress test + changes in anterior leads. pt then underwent cardiac cath by Dr Vidal Hawkins and found to have multi vessel coronary disease 90% prox LAD, 80% mid distal LAD, 90% CX, EF 50% PCP Dr Laura Esquivel [place] PMH: HTN, HLP, hypothyroidism surgery: 04/25/17 1. Urgent Off-pump Coronary Artery Bypass Grafting x 3 with Left Internal Mammary Artery (CHACON) to Left Anterior Descending (LAD), reverse saphenous vein graft to Diagonal 1, reverse saphenous vein graft to the Obtuse Marginal 1 branch of the Circumflex artery pt was somewhat combative immediately after surgery, required morphine , fentanyl, Precedex and weaned later appropriately on Precedex to extubation was also started on cleviprex gtt 2500cc crystalloid, 250cc EBL 04/26/17 pt awake alert , up in chair no further confusion on statin, BB amiodarone , ASA plavix pulm toileting , OOB transfer to stepdown 04/27/17 chest tube drained 90cc/ 12 hrs , no air leak chest tube removed without difficulty c/o mild sore throat voiding without difficulty start low dose BB today Objective: GENERAL: SKIN: Warm and dry. prevena to chest , incision intact to left leg HEAD: Normocephalic. EYES: No scleral icterus. No injection or drainage. NECK: Supple, trachea midline. No JVD or lymphadenopathy. CARDIOVASCULAR: Regular rate and rhythm without murmurs, gallops, or rubs. RESPIRATORY: Breath sounds equal bilaterally. No accessory muscle use. chest tube removed without difficulty GASTROINTESTINAL: Abdomen soft, non-tender, nondistended. MUSCULOSKELETAL: No cyanosis, or edema. BACK: Nontender without obvious deformity. No CVA tenderness. Vital Signs Date Time Temp Pulse Resp B/P Pulse Ox O2 Delivery O2 Flow Rate FiO2 04/27/17 08:00 98.6 82 20 149/89 94 04/27/17 08:00 76 04/27/17 07:16 90 Nasal Cannula 04/27/17 07:00 80 04/27/17 06:00 76 04/27/17 05:13 78 04/27/17 04:20 77 04/27/17 03:29 77 04/27/17 03:29 98.4 78 18 122/68 92 04/27/17 02:00 77 04/27/17 01:02 73 04/27/17 00:45 73 04/26/17 23:20 98.6 73 18 136/68 92 04/26/17 23:20 78 04/26/17 22:00 76 04/26/17 21:00 80 04/26/17 20:00 74 04/26/17 19:15 99.6 75 20 144/77 95 04/26/17 19:15 76 04/26/17 15:00 98.7 70 16 117/60 94 04/26/17 15:00 71 04/26/17 11:00 98.3 74 16 111/67 96 Arterial Line 04/26/17 11:00 70 Labs: Laboratory Tests Test 04/27/17 05:30 White Blood Count 12.7 TH/MM3 (4.0-11.0) Red Blood Count 4.13 MIL/MM3 (4.50-5.90) Hemoglobin 12.7 GM/DL (13.0-17.0) Hematocrit 36.8 % (39.0-51.0) Mean Corpuscular Volume 89.2 FL (80.0-100.0) Mean Corpuscular Hemoglobin 30.8 PG (27.0-34.0) Mean Corpuscular Hemoglobin 34.5 % Concent (32.0-36.0) Red Cell Distribution Width 15.6 % (11.6-17.2) Platelet Count 168 TH/MM3 (150-450) Mean Platelet Volume 7.7 FL (7.0-11.0) Neutrophils (%) (Auto) 76.6 % (16.0-70.0) Lymphocytes (%) (Auto) 11.3 % (9.0-44.0) Monocytes (%) (Auto) 11.0 % (0.0-8.0) Eosinophils (%) (Auto) 0.3 % (0.0-4.0) Basophils (%) (Auto) 0.8 % (0.0-2.0) Neutrophils # (Auto) 9.8 TH/MM3 (1.8-7.7) Lymphocytes # (Auto) 1.4 TH/MM3 (1.0-4.8) Monocytes # (Auto) 1.4 TH/MM3 (0-0.9) Eosinophils # (Auto) 0.0 TH/MM3 (0-0.4) Basophils # (Auto) 0.1 TH/MM3 (0-0.2) CBC Comment DIFF FINAL Differential Comment Sodium Level 135 MEQ/L (136-145) Potassium Level 3.8 MEQ/L (3.5-5.1) Chloride Level 101 MEQ/L (98-107) Carbon Dioxide Level 28.1 MEQ/L (21.0-32.0) Anion Gap 6 MEQ/L (5-15) Blood Urea Nitrogen 13 MG/DL (7-18) Creatinine 0.77 MG/DL (0.60-1.30) Estimat Glomerular Filtration 100 ML/MIN Rate (>89) Random Glucose 110 MG/DL (74-106) Calcium Level 8.4 MG/DL (8.5-10.1) Magnesium Level 2.5 MG/DL (1.5-2.5) Result Diagram: 04/27/1752904/27/17529 (1) Chest pain Plan: Severe 2 vessel CAD Preserved EF Awaiting CABG (Tuesday) Recommendations: 1. Cont Heparin drip 2. Aggressive medical management for CAD (2) S/P CABG (coronary artery bypass graft) Plan: statin , start BB ASA, plavix pulm toileting nebs, ezpap acapella ambulate/ OOB chest tube removed (3) Coronary artery disease (4) Hyperlipemia Plan: on statin (5) Hypertension Plan: controlled Pauline Rodriguez Apr 27, 2017 10:28
[2017-04-27] MEDS ORDERED: BENZOCAINE-MENTHOL (SUGAR FREE) 15 MG-3.6 MG LOZENGE BUCCAL PRN (10:45)
--- NOTE | 2017-04-27 10:57 | RSPPFT ---
DATE OF PROCEDURE: 04/22/17 COMMENTS: Spirometry with FVC of 4.0, FEV1 of 2.7, FEV1/FVC ratio at 67%. Post-bronchodilator study was not performed. IMPRESSION: 1. Mild airways obstruction. 2. Post-bronchodilator study was not performed.
--- NOTE | 2017-04-27 12:43 | RADRPT ---
EXAM DATE/TIME: 04/27/2017 11:37 [facility] COMPARISON: CHEST SINGLE AP, April 26, 2017, 4:09. INDICATIONS : Chest tube removal. MEDICAL HISTORY : Hypertension. Hypercholesterolemia. Coronary artery disease. SURGICAL HISTORY : CABG. ENCOUNTER: Initial ACUITY: 1 week PAIN SCORE: 0/10 LOCATION: Bilateral chest FINDINGS: Left sided chest tube and mediastinal drain have been removed. Mild bilateral airspace disease characteristic of atelectasis is noted. There is no significant pneumothorax. Right jugular sheath remains in place. CONCLUSION: 1. No significant pneumothorax status post left chest tube removal. 2. Expiratory chest demonstrating bilateral atelectasis. 3. Otherwise stable postoperative chest. Hi Reilly MD on April 27, 2017 at 12:39 Board Certified Radiologist. This report was verified electronically.
[2017-04-27] MEDS: ONDANSETRON HCL 4 MG/2 ML VIAL IV PUSH PRN (20:59)
[2017-04-27] MEDS: TAMSULOSIN HCL 0.4 MG CAP PO SCH (21:00)
[2017-04-27] MEDS: SENNOSIDES 8.6 MG TAB PO SCH (21:00)
[2017-04-27] MEDS: ATORVASTATIN 80 MG TAB PO SCH (21:00)
[2017-04-28] VITALS (28 sets, daily range): BP systolic 114–145; BP diastolic 64–81; PULSE 58–77; RESP 19–20; TEMP 98.5–99.6; O2SAT 92–95
[2017-04-28] MEDS: LEVOTHYROXINE SODIUM 50 MCG TAB PO SCH (06:18)
[2017-04-28] MEDS: PANTOPRAZOLE SOD 40 MG DELAYED RELEASE TAB PO SCH (06:18)
[2017-04-28] MEDS: INSULIN ASPART SUPPLEMENTAL SCALE SQ SCH ×4 (06:20→20:47)
[2017-04-28] MEDS: RESP: ALBUTEROL 2.5 MG/IPRATROPIUM 0.5 MG NEB (SCH) NEB (08:01)
[2017-04-28] MEDS ORDERED: FUROSEMIDE 40 MG/4 ML VIAL IV PUSH ONE (08:15)
[2017-04-28] MEDS ORDERED: POTASSIUM CHLORIDE 10 MEQ CONTROLLED RELEASE TAB PO ONE ×2 (08:15→12:00)
[2017-04-28] MEDS ORDERED: BISACODYL 10 MG SUPP RECTAL ONE (09:30)
[2017-04-28] MEDS: AMIODARONE 200 MG TAB PO SCH ×2 (09:31→20:46)
[2017-04-28] MEDS: MULTIVITAMINS/MINERALS THERAPEUTIC TAB PO SCH (09:31)
[2017-04-28] MEDS: MAGNESIUM HYDROXIDE SUSP 30 ML CUP PO SCH (09:31)
[2017-04-28] MEDS: ASPIRIN 81 MG CHEW TAB PO SCH (09:31)
[2017-04-28] MEDS: POLYETHYLENE GLYCOL 17 GM PKG PO SCH (09:31)
[2017-04-28] MEDS: DOCUSATE SODIUM 100 MG CAP PO SCH ×2 (09:31→20:47)
[2017-04-28] MEDS: CLOPIDOGREL 75 MG TAB PO SCH (09:32)
[2017-04-28] MEDS: SODIUM CHLORIDE 0.9% FLUSH 10 ML FLUSH IV FLUSH SCH ×2 (09:32→20:47)
[2017-04-28] MEDS: METOPROLOL TARTRATE 25 MG TAB PO SCH ×2 (09:32→20:47)
[2017-04-28] MEDS: ONDANSETRON HCL 4 MG/2 ML VIAL IV PUSH PRN ×2 (09:50→15:24)
--- NOTE | 2017-04-28 10:30 | PD.CAR.PN ---
CVT Progress Note Subjective/Hospital Course: 66/ male c/o chest pressure on and off x 6 months, presented to ED with chest pain , nonspecific ECG changes , admitted to chest coco clinic. Underwent exercise stress test + changes in anterior leads. pt then underwent cardiac cath by Dr Vidal Hawkins and found to have multi vessel coronary disease 90% prox LAD, 80% mid distal LAD, 90% CX, EF 50% PCP Dr Laura Esquivel [place] PMH: HTN, HLP, hypothyroidism surgery: 04/25/17 1. Urgent Off-pump Coronary Artery Bypass Grafting x 3 with Left Internal Mammary Artery (CHACON) to Left Anterior Descending (LAD), reverse saphenous vein graft to Diagonal 1, reverse saphenous vein graft to the Obtuse Marginal 1 branch of the Circumflex artery pt was somewhat combative immediately after surgery, required morphine , fentanyl, Precedex and weaned later appropriately on Precedex to extubation was also started on cleviprex gtt 2500cc crystalloid, 250cc EBL 04/26/17 pt awake alert , up in chair no further confusion on statin, BB amiodarone , ASA plavix pulm toileting , OOB transfer to stepdown 04/27/17 chest tube drained 90cc/ 12 hrs , no air leak chest tube removed without difficulty c/o mild sore throat voiding without difficulty start low dose BB today 04/28/17 doing well continue pulm toileting eval for dc in am Objective: GENERAL: A&O x 3 SKIN: Warm and dry. prevena dressing in place / incision intact left leg HEAD: Normocephalic. EYES: No scleral icterus. No injection or drainage. NECK: Supple, trachea midline. No JVD or lymphadenopathy. CARDIOVASCULAR: Regular rate and rhythm without murmurs, gallops, or rubs. RESPIRATORY: Breath sounds equal bilaterally. No accessory muscle use. diminished in bases GASTROINTESTINAL: Abdomen soft, non-tender, nondistended. MUSCULOSKELETAL: No cyanosis, or edema. BACK: Nontender without obvious deformity. No CVA tenderness. Vital Signs Date Time Temp Pulse Resp B/P Pulse Ox O2 Delivery O2 Flow Rate FiO2 04/28/17 10:00 77 04/28/17 09:00 76 04/28/17 08:04 92 04/28/17 08:00 98.5 76 20 123/69 95 04/28/17 08:00 72 04/28/17 07:00 73 04/28/17 06:00 72 04/28/17 05:00 74 04/28/17 04:00 73 04/28/17 03:00 99.6 72 19 145/81 94 04/28/17 03:00 72 04/28/17 02:00 75 04/28/17 01:00 75 04/28/17 00:00 73 04/27/17 23:00 100.1 75 19 126/79 93 04/27/17 23:00 77 04/27/17 22:00 91 04/27/17 21:00 88 04/27/17 20:20 94 Nasal Cannula 2.00 04/27/17 20:07 87 21 04/27/17 20:00 93 04/27/17 19:00 81 04/27/17 19:00 100.8 87 19 126/74 98 04/27/17 18:00 82 04/27/17 17:00 84 04/27/17 16:00 80 04/27/17 15:51 98.2 82 20 132/72 94 04/27/17 15:00 83 04/27/17 14:00 82 04/27/17 13:00 80 04/27/17 12:00 78 04/27/17 11:52 98.6 82 20 124/72 94 04/27/17 11:00 80 04/27/17 10:39 20 Result Diagram: 04/27/17 0530 04/27/17 0530 Telemetry: NSR (1) Chest pain (2) S/P CABG (coronary artery bypass graft) Plan: statin , BB ASA, plavix pulm toileting nebs, ezpap acapella ambulate/ OOB cxr no PTX, bibasilar atelectasis (3) Coronary artery disease (4) Hyperlipemia Plan: on statin (5) Hypertension Plan: controlled (6) Blood loss anemia Pauline Rodriguez Apr 28, 2017 10:30 f/u HGB in am Pauline Rodriguez Apr 28, 2017 10:30
[2017-04-28] MEDS: TAMSULOSIN HCL 0.4 MG CAP PO SCH (20:46)
[2017-04-28] MEDS: ATORVASTATIN 80 MG TAB PO SCH (20:47)
[2017-04-28] MEDS: SENNOSIDES 8.6 MG TAB PO SCH (20:47)
[2017-04-29] VITALS (16 sets, daily range): BP systolic 114–138; BP diastolic 67–74; PULSE 55–75; RESP 18–20; TEMP 97.9–98.5; O2SAT 91–97
[2017-04-29] MEDS: LEVOTHYROXINE SODIUM 50 MCG TAB PO SCH (05:01)
[2017-04-29] MEDS: PANTOPRAZOLE SOD 40 MG DELAYED RELEASE TAB PO SCH (05:01)
[2017-04-29] MEDS: INSULIN ASPART SUPPLEMENTAL SCALE SQ SCH ×2 (05:04→11:00)
[2017-04-29] MEDS: METOPROLOL TARTRATE 25 MG TAB PO SCH (08:44)
[2017-04-29] MEDS: ASPIRIN 81 MG CHEW TAB PO SCH (08:44)
[2017-04-29] MEDS: AMIODARONE 200 MG TAB PO SCH (08:44)
[2017-04-29] MEDS: MULTIVITAMINS/MINERALS THERAPEUTIC TAB PO SCH (08:44)
[2017-04-29] MEDS: CLOPIDOGREL 75 MG TAB PO SCH (08:44)
[2017-04-29] MEDS: SODIUM CHLORIDE 0.9% FLUSH 10 ML FLUSH IV FLUSH SCH (08:45)
[2017-04-29] MEDS: DOCUSATE SODIUM 100 MG CAP PO SCH (08:46)
[2017-04-29] MEDS: POLYETHYLENE GLYCOL 17 GM PKG PO SCH (08:46)
[2017-04-29] MEDS: MAGNESIUM HYDROXIDE SUSP 30 ML CUP PO SCH (08:46)
[2017-04-29] MEDS ORDERED: OXYC1TAB63 PO (09:41)
[2017-04-29] MEDS ORDERED: PLAV75TA29 PO (09:41)
[2017-04-29] MEDS ORDERED: ASPI81CH25 PO (09:41)
[2017-04-29] MEDS ORDERED: AMIO200T PO (09:41)
[2017-04-29] MEDS ORDERED: DOCU1CAP39 PO (09:41)
[2017-04-29] MEDS ORDERED: THERM PO (09:41)
[2017-04-29] MEDS ORDERED: METO25TA3 PO (09:41)
[2017-04-29] MEDS: ONDANSETRON HCL 4 MG/2 ML VIAL IV PUSH PRN (10:20)
--- NOTE | 2017-04-29 13:32 | HHI.DS ---
Discharge Summary Admission Date Apr 21, 2017 at 18:37 Discharge Date: Apr 29, 2017 Admitting Diagnosis chest pain (1) Chest pain Diagnosis: Principal (2) Coronary artery disease Diagnosis: Principal (3) Hyperlipemia Diagnosis: Principal (4) Hypertension Diagnosis: Principal (5) Blood loss anemia Diagnosis: Principal (6) S/P CABG (coronary artery bypass graft) Diagnosis: Secondary Procedures 1. Urgent Off-pump Coronary Artery Bypass Grafting x 3 with Left Internal Mammary Artery (CHACON) to Left Anterior Descending (LAD), reverse saphenous vein graft to Diagonal 1, reverse saphenous vein graft to the Obtuse Marginal 1 branch of the Circumflex artery 2. Left Leg Endoscopic Vein [place] 3. Intraoperative Vein Mapping. 04/25/17 Brief History 66/ male c/o chest pressure on and off x 6 months, presented to ED with chest pain , nonspecific ECG changes , admitted to chest coco clinic. Underwent exercise stress test + changes in anterior leads. pt then underwent cardiac cath by Dr Vidal Hawkins and found to have multi vessel coronary disease 90% prox LAD, 80% mid distal LAD, 90% CX, EF 50% PCP Dr Laura Esquivel [place] PMH: HTN, HLP, hypothyroidism CBC/BMP: 04/27/17 0530 04/27/17 0530 Significant Findings Laboratory Tests Test 04/27/17 05:30 White Blood Count 12.7 TH/MM3 (4.0-11.0) Red Blood Count 4.13 MIL/MM3 (4.50-5.90) Hemoglobin 12.7 GM/DL (13.0-17.0) Hematocrit 36.8 % (39.0-51.0) Neutrophils (%) (Auto) 76.6 % (16.0-70.0) Monocytes (%) (Auto) 11.0 % (0.0-8.0) Neutrophils # (Auto) 9.8 TH/MM3 (1.8-7.7) Monocytes # (Auto) 1.4 TH/MM3 (0-0.9) Sodium Level 135 MEQ/L (136-145) Random Glucose 110 MG/DL (74-106) Calcium Level 8.4 MG/DL (8.5-10.1) Imaging Last Impressions Chest X-Ray 04/27/17 0000 Signed Impressions: Service Date/Time: Thursday, April 27, 2017 11:37 - CONCLUSION: 1. No significant pneumothorax status post left chest tube removal. 2. Expiratory chest demonstrating bilateral atelectasis. 3. Otherwise stable postoperative chest. Hi Reilly MD Lower Extremity Ultrasound 04/22/17 0000 Signed Impressions: Service Date/Time: Saturday, April 22, 2017 12:19 - CONCLUSION: Venous mapping as described above. Nikolay Kelly MD FACR Carotid Artery Ultrasound 04/21/17 0000 Signed Impressions: Service Date/Time: April 17:04 - CONCLUSION: 1. No hemodynamically significant flow limiting stenosis in the carotid arteries. 2. Antegrade vertebral artery flow bilaterally. Eliud Jauregui MD Current Medications Medications (Trade) Dose Ordered Sig/Aleta Route Start Time Stop Time Status Last Admin (Tylenol) 500 mg Q4H PRN PO 04/20/17 15:15 (Lipitor) 80 mg HS PO 04/20/17 21:00 04/28/17 20:47 (Synthroid) 50 mcg DAILY@06 PO 04/21/17 06:00 04/29/17 05:01 (Flomax) 0.4 mg HS PO 04/20/17 21:00 04/28/17 20:46 (Pill Splitter) 1 ea UNSCH PRN OTHER 04/20/17 19:00 (NS Flush) 2 ml BID IV FLUSH 04/25/17 21:00 04/29/17 08:45 (Aspirin Chew) 81 mg DAILY PO 04/26/17 09:00 04/29/17 08:44 (Plavix) 75 mg DAILY PO 04/26/17 09:00 04/29/17 08:44 (Protonix) 40 mg DAILY@06 PO 04/26/17 06:00 04/29/17 05:01 (Cordarone) 200 mg Q12HR PO 04/25/17 21:00 04/29/17 08:44 (Tylenol) 650 mg Q4H PRN PO 04/25/17 15:15 (Percocet 5-325 Mg) 1 tab Q3H PRN PO 04/25/17 15:15 04/27/17 16:28 (Zofran Inj) 4 mg Q6H PRN IV PUSH 04/25/17 15:15 04/29/17 10:20 (Apresoline Inj) 10 mg Q4H PRN IV 04/25/17 15:15 (Lopressor Inj) 2.5 mg Q1H PRN IV PUSH 04/25/17 15:15 (Colace) 100 mg BID PO 04/26/17 21:00 04/28/17 09:31 (Theragran M Tab) 1 tab DAILY PO 04/27/17 09:00 04/29/17 08:44 (Milk Of Magnesia Liq) 30 ml DAILY PO 04/27/17 09:00 04/28/17 09:31 (Miralax) 17 gm DAILY PO 04/27/17 09:00 04/28/17 09:31 (Senokot) 8.6 mg HS PO 04/26/17 21:00 04/27/17 21:00 (Fleets Enema (Adult)) 133 ml UNSCH PRN RECTAL 04/26/17 09:45 (D50w (Vial) Inj) 50 ml UNSCH PRN IV 04/26/17 09:45 (Glucagon Inj) 1 mg UNSCH PRN OTHER 04/26/17 09:45 (NovoLOG SUPPLEMENTAL SCALE) 1 ACHS SQ 04/27/17 11:00 (Cepacol Extra Rohit (Sugar Free)) 1 lozenge Q2HR PRN BUCCAL 04/27/17 10:45 (Lopressor) 25 mg Q12HR PO 04/28/17 09:00 04/29/17 08:44 GENERAL: SKIN: Warm and dry. HEAD: Normocephalic. EYES: No scleral icterus. No injection or drainage. NECK: Supple, trachea midline. No JVD or lymphadenopathy. CARDIOVASCULAR: Regular rate and rhythm without murmurs, gallops, or rubs. RESPIRATORY: Breath sounds equal bilaterally. No accessory muscle use. GASTROINTESTINAL: Abdomen soft, non-tender, nondistended. MUSCULOSKELETAL: No cyanosis, or edema. BACK: Nontender without obvious deformity. No CVA tenderness. PE at Discharge GENERAL: SKIN: Warm and dry. prevena to chest / incision intact to left leg HEAD: Normocephalic. EYES: No scleral icterus. No injection or drainage. NECK: Supple, trachea midline. No JVD or lymphadenopathy. CARDIOVASCULAR: Regular rate and rhythm without murmurs, gallops, or rubs. RESPIRATORY: Breath sounds equal bilaterally. No accessory muscle use. GASTROINTESTINAL: Abdomen soft, non-tender, nondistended. MUSCULOSKELETAL: No cyanosis, or edema. BACK: Nontender without obvious deformity. No CVA tenderness. Hospital Course pt was somewhat combative immediately after surgery, required morphine , fentanyl, Precedex and weaned later appropriately on Precedex to extubation was also started on cleviprex gtt 2500cc crystalloid, 250cc EBL 04/26/17 pt awake alert , up in chair no further confusion on statin, BB amiodarone , ASA plavix pulm toileting , OOB transfer to stepdown 04/27/17 chest tube drained 90cc/ 12 hrs , no air leak chest tube removed without difficulty c/o mild sore throat voiding without difficulty start low dose BB today 04/28/17 doing well continue pulm toileting eval for dc in am 04/29/17 on room air stable for dc home remains in NSR ok for dc today Discharge Disposition: Disch w/ Home Health Serv Discharge Instructions DIET: Follow Instructions for: Heart Healthy Diet Activities you can perform: Shower Only-No Bath Activities to avoid: Prolonged Standing, Strenuous Activity, Driving Follow up Referrals: Appointment for Follow Up with Giovani Foster MD Cardiology with Vidal Pate MD PCP [facility] New Medications: Amiodarone (Amiodarone) 200 Mg Tab 200 MG PO Q12HR heart rhythm #28 Ref 0 TAB Aspirin (Aspirin Low Strength) 81 Mg Chew 81 MG PO DAILY Blood Clot Prevention #100 Ref 2 EA Clopidogrel (Plavix) 75 Mg Tab 75 MG PO DAILY Blood Clot Prevention #30 Ref 2 TAB Docusate Sodium (Dok) 100 Mg Cap 100 MG PO BID Constipation #60 CAP Metoprolol Tartrate (Metoprolol Tartrate) 25 Mg Tab 25 MG PO Q12HR Blood Pressure Management #60 Ref 2 TAB Multiple Vitamins W/ Minerals (Thera M Plus) 1 Tab 1 TAB PO DAILY multi vitamin #30 Ref 2 TAB Oxycodone-Acetaminophen (Oxycodone-Acetaminophen) 5-325 mg Tab 1 TAB PO Q6HR PRN PAIN SCALE 1 TO 5 #40 Ref 0 TAB Continued Medications: Atorvastatin (Lipitor) 80 Mg Tab 80 MG PO HS Cholesterol Management #30 Ref 0 TAB Levothyroxine (Synthroid) 50 Mcg Tab 50 MCG PO DAILY Thyroid #30 Ref 0 TAB Tamsulosin (Tamsulosin) 0.4 Mg Cap 0.4 MG PO HS Manage Prostate Problems #30 Ref 0 CAP Testosterone Cypionate Inj (Testosterone Cypionate Inj) 200 Mg/Ml Inj 200 MG IM Q14D Hormone Replacement #1 Ref 0 VIAL Discontinued Medications: Lisinopril-Hctz (Lisinopril-Hctz) 10-12.5 Mg Tab 1 TAB PO DAILY Blood Pressure Management #30 Ref 0 TAB Pauline Rodriguez Apr 29, 2017 13:32
== END 2017-04-29 15:10 | disposition home health service (06) | DRG 234 ==
LOC: NEPE 12:26 → NEDA 14:48 → NEPFCDU 17:15 → HCIS 04-21 14:07 → HCIN 04-21 16:52 → OBSVTOIN 04-21 18:37 → HCPC 04-25 10:38 → HCVR 04-25 15:47 → HCIN 04-26 18:03
PROVIDERS: ADMIT Thoracic Surgery (Cardiothoracic Vascular Surgery); ATTEND Thoracic Surgery (Cardiothoracic Vascular Surgery)
PROC: 4A023N7 Measurement of Cardiac Sampling and Pressure, Left Heart, Percutaneous Approach (ICD-10-PCS; 2017-04-21)
PROC: B2111ZZ Fluoroscopy of Multiple Coronary Arteries using Low Osmolar Contrast (ICD-10-PCS; 2017-04-21)
PROC: B2151ZZ Fluoroscopy of Left Heart using Low Osmolar Contrast (ICD-10-PCS; 2017-04-21)
PROC: B41F1ZZ Fluoroscopy of Right Lower Extremity Arteries using Low Osmolar Contrast (ICD-10-PCS; 2017-04-21)
PROC: 02100Z9 Bypass Coronary Artery, One Artery from Left Internal Mammary, Open Approach (ICD-10-PCS; 2017-04-25)
PROC: 06BQ4ZZ Excision of Left Saphenous Vein, Percutaneous Endoscopic Approach (ICD-10-PCS; 2017-04-25)
PROC: 021109W Bypass Coronary Artery, Two Arteries from Aorta with Autologous Venous Tissue, Open Approach (ICD-10-PCS; principal; 2017-04-25 10:39)
DX: I25.110 Atherosclerotic heart disease of native coronary artery with unstable angina pectoris (principal); I10 Essential (primary) hypertension; I25.84 Coronary atherosclerosis due to calcified coronary lesion; E03.9 Hypothyroidism, unspecified; E78.5 Hyperlipidemia, unspecified; E66.9 Obesity, unspecified; N40.0 Benign prostatic hyperplasia without lower urinary tract symptoms; E78.00 Pure hypercholesterolemia, unspecified; K59.00 Constipation, unspecified; E87.6 Hypokalemia; D50.0 Iron deficiency anemia secondary to blood loss (chronic); Z68.32 Body mass index [BMI] 32.0-32.9, adult; Z82.49 Family history of ischemic heart disease and other diseases of the circulatory system; Z87.891 Personal history of nicotine dependence; Z96.641 Presence of right artificial hip joint
CPT/HCPCS: 71010; 76937; 80048; 80053; 80061; 81001; 82272; 82550; 82552; 82948; 83036; 83735; 84484; 85014; 85025; 85027; 85610; 85730; 86850; 86900; 86901; 86920; 87641; 93005; 93017; 93306; 93318; 93458; 93880; 93970; 93998; 94002; 94010; 94150; 94640; 94664; 94667; 94668; C1760; C1768; C1769; C1893; C9248; G0269; G0378; J0131; J0690; J1644; J1815; J1940; J2250; J2270; J2405; J2440; J2720; J2930; J3010; J3370; J3475; J3480; J7040; J7050; J7120; Q9967